=== PATIENT | female | born 1950 | race American Indian/Alaskan Native ===

== ENCOUNTER 2021-07-14 14:48 | Emergency (ER) | payer MEDICARE ==
--- NOTE | 2021-07-14 15:26 | Emergency Department Report ---
ED General Adult HPI - General Chief complaint: Rectal Pain Stated complaint: TAILBONE PAIN/BUTTOCK Time Seen by Provider: 07/14/21 15:15 Source: patient, EMS ( EMS documentation not available at time of chart dictation ), RN notes reviewed, old records reviewed Mode of arrival: Stretcher Limitations: No Limitations - History of Present Illness Initial comments: During the history and physical, I am chaperoned by nurse ZOHAIB GARDNER The patient is a 71-year-old female. Her past medical history includes metastatic ovarian cancer, to bone, hypertension. She currently receives her medical care at cancer treatment [facility]. She presents to the ER today with a primary complaint of tailbone and pelvic pain after mechanical fall 2 days ago. She reports that she is supposed to ambulate with a cane, but was not walking with a cane. She reports that she fell, slipped on her tailbone, and believes that she hit her head. She also has chronic back pain. She denies extremity weakness and numbness. She also endorses dysuria. She denies bladder/bowel retention incontinence or saddle anesthesia. She believes that she has a history of hypertension, but she reports that she is not taking any antihypertensive therapy that she is aware of. She does report that she is currently receiving chemotherapy at cancer treatment [facility]. She believes she last had blood work performed February 2021 Her main complaint today is musculoskeletal tailbone pain, and pelvic pain -: days(s) Location: back, pelvis Severity scale (0 -10): 4 Quality: aching Consistency: constant Improves with: rest Worsens with: movement - Related Data Home Medications Medication Instructions Recorded Confirmed Last Taken Cyproheptadine [Periactin] 4 mg PO TID 07/31/20 07/31/20 Unknown Docusate Sodium [Colace CAP] 100 mg PO TID PRN 07/31/20 07/31/20 Unknown Escitalopram [Lexapro] 20 mg PO DAILY 07/31/20 07/31/20 Unknown Iron Fum,Ps/Folic/Bcomp,C No.9 1 each PO QDAY 07/31/20 07/31/20 Unknown [Folivane-Plus Capsule] Lubiprostone (Nf) [Amitiza (Nf)] 8 mcg PO TID 07/31/20 07/31/20 Unknown Morphine Sulfate [Morphine Sulfate 60 mg PO BID 07/31/20 07/31/20 Unknown ER] Pomalidomide [Pomalyst] 1 mg PO QDAY 07/31/20 07/31/20 Unknown Zolpidem Tartrate 10 mg PO QHS 07/31/20 07/31/20 Unknown dexAMETHasone [Dexamethasone] 4 mg PO QDAY 07/31/20 07/31/20 Unknown Previous Rx's Medication Instructions Recorded Last Taken Type NIFEdipine XL [Procardia Xl] 90 mg PO Q12HR #60 tablet 08/06/20 Unknown Rx HYDROcodone/APAP 10-325 [[place] 1 each PO Q12HR PRN #15 tab 07/14/21 Unknown Rx 10-325 mg TAB] Metoprolol Tartrate 50 mg PO BID #60 tab 07/14/21 Unknown Rx Pregabalin [Lyrica] 50 mg PO QDAY #60 cap 07/14/21 Unknown Rx Allergies Allergy/AdvReac Type Severity Reaction Status Date / Time Penicillins AdvReac Unknown Verified 07/31/20 17:03 Sulfa (Sulfonamide AdvReac Unknown Verified 07/31/20 17:03 Antibiotics) ED Review of Systems ROS: Stated complaint: TAILBONE PAIN/BUTTOCK Other details as noted in HPI Constitutional: malaise. denies: fever Eyes: denies: eye discharge ENT: denies: epistaxis Respiratory: denies: cough Cardiovascular: denies: chest pain Gastrointestinal: denies: abdominal pain Genitourinary: denies: dysuria Musculoskeletal: back pain, arthralgia, myalgia Neurological: denies: weakness ED Past Medical Hx - Past Medical History Hx Hypertension: Yes - Social History Smoking Status: Unknown if ever smoked - Medications Home Medications: Home Medications Medication Instructions Recorded Confirmed Last Taken Type Cyproheptadine [Periactin] 4 mg PO TID 07/31/20 07/31/20 Unknown History Docusate Sodium [Colace CAP] 100 mg PO TID PRN 07/31/20 07/31/20 Unknown History Escitalopram [Lexapro] 20 mg PO DAILY 07/31/20 07/31/20 Unknown History Iron Fum,Ps/Folic/Bcomp,C No.9 1 each PO QDAY 07/31/20 07/31/20 Unknown History [Folivane-Plus Capsule] Lubiprostone (Nf) [Amitiza (Nf)] 8 mcg PO TID 07/31/20 07/31/20 Unknown History Morphine Sulfate [Morphine Sulfate 60 mg PO BID 07/31/20 07/31/20 Unknown History ER] Pomalidomide [Pomalyst] 1 mg PO QDAY 07/31/20 07/31/20 Unknown History Zolpidem Tartrate 10 mg PO QHS 07/31/20 07/31/20 Unknown History dexAMETHasone [Dexamethasone] 4 mg PO QDAY 07/31/20 07/31/20 Unknown History NIFEdipine XL [Procardia Xl] 90 mg PO Q12HR #60 tablet 08/06/20 Unknown Rx HYDROcodone/APAP 10-325 [[place] 1 each PO Q12HR PRN #15 tab 07/14/21 Unknown Rx 10-325 mg TAB] Metoprolol Tartrate 50 mg PO BID #60 tab 07/14/21 Unknown Rx Pregabalin [Lyrica] 50 mg PO QDAY #60 cap 07/14/21 Unknown Rx ED Physical Exam - General Limitations: No Limitations General appearance: alert, in no apparent distress - Head Head exam: Present: atraumatic, normocephalic - Eye Eye exam: Present: normal appearance, EOMI. Absent: nystagmus - ENT ENT exam: Present: normal exam, normal orophraynx, mucous membranes moist, normal external ear exam - Neck Neck exam: Present: normal inspection, full ROM. Absent: tenderness, meningismus - Respiratory Respiratory exam: Present: normal lung sounds bilaterally. Absent: respiratory distress, wheezes, rales, rhonchi, stridor, decreased breath sounds - Cardiovascular Cardiovascular Exam: Present: regular rate, normal rhythm, normal heart sounds. Absent: bradycardia, tachycardia, irregular rhythm, systolic murmur, diastolic murmur, rubs, gallop - GI/Abdominal GI/Abdominal exam: Present: soft. Absent: distended, tenderness, guarding, pulsatile mass - Extremities Exam Extremities exam: Present: normal inspection, other (2+ pulses noted in the bilateral upper and lower extremities. The long bones are nontender. The pelvis is stable but tender. The coccyx is tender. Chaperoned by nurse Doug). Absent: tenderness, calf tenderness - Back Exam Back exam: Present: normal inspection, vertebral tenderness (There is thoracic tenderness. There is no thoracic step-offs there is no lumbar spine step-off.). Absent: tenderness, CVA tenderness (R), paraspinal tenderness - Neurological Exam Neurological exam: Present: alert (Downgoing plantar reflexes bilaterally), oriented X3, reflexes normal, other (No facial droop. Tongue midline. Extraocular movements intact bilaterally. Facial sensation intact to light touch in V1, V2, V3 distribution bilaterally. 5 and a 5 strength in 4 extremities. Sensation intact to light touch in 4 extremities.). Absent: motor sensory deficit - Psychiatric Psychiatric exam: Present: normal affect, normal mood - Skin Skin exam: Present: warm, dry, intact, normal color. Absent: rash ED Course Vital Signs 07/14/21 07/14/21 07/14/21 15:03 15:13 15:21 Temperature 98.5 F Pulse Rate 94 H 91 H Respiratory 16 14 Rate Blood Pressure 215/87 Blood Pressure 230/85 [Right] O2 Sat by Pulse 100 100 100 Oximetry O2 Sat by Pulse Oximetry [ Digit-Finger] 07/14/21 07/14/21 07/14/21 15:26 15:29 15:40 Temperature Pulse Rate 86 92 H Respiratory 16 16 15 Rate Blood Pressure 215/87 Blood Pressure 215/87 [Right] O2 Sat by Pulse 100 100 100 Oximetry O2 Sat by Pulse Oximetry [ Digit-Finger] 07/14/21 07/14/21 07/14/21 16:43 16:46 17:00 Temperature Pulse Rate 87 82 83 Respiratory 21 20 18 Rate Blood Pressure 201/94 201/94 Blood Pressure 201/94 [Right] O2 Sat by Pulse 99 100 100 Oximetry O2 Sat by Pulse Oximetry [ Digit-Finger] 07/14/21 07/14/21 07/14/21 17:20 17:29 17:40 Temperature Pulse Rate 85 88 Respiratory 17 23 Rate Blood Pressure 215/84 206/76 Blood Pressure [Right] O2 Sat by Pulse 99 100 Oximetry O2 Sat by Pulse 99 Oximetry [ Digit-Finger] 07/14/21 07/14/21 07/14/21 18:00 18:20 18:40 Temperature Pulse Rate 88 79 78 Respiratory 16 22 17 Rate Blood Pressure 200/89 210/84 218/84 Blood Pressure [Right] O2 Sat by Pulse 100 99 100 Oximetry O2 Sat by Pulse Oximetry [ Digit-Finger] 07/14/21 07/14/21 07/14/21 19:00 19:25 19:36 Temperature 98.3 F Pulse Rate 78 79 Respiratory 16 14 14 Rate Blood Pressure 218/85 Blood Pressure 215/80 [Right] O2 Sat by Pulse 100 100 Oximetry O2 Sat by Pulse Oximetry [ Digit-Finger] - Reevaluation(s) Reevaluation #1: 07/14/21 17:23 Differential diagnosis, including but not limited to: Closed head injury, c ervical spine injury, thoracic spine fracture, metastatic ovarian cancer to bone, hypertension, noncompliance, coccydynia, pelvic/sacrum/coccyx contusion/fracture Assessment and plan: 71-year-old female, with multiple medical comorbidities, with known history of metastatic ovarian cancer to bone, presenting to the ER today 2 days after fall, after ambulating without a cane like she is supposed to . Blood pressure is improved. Please reference the [employer] clinical policy on asymptomatic hypertension. Start patient on amlodipine. Given complex past medical history, obtain CBC, urinalysis, and appropriate laboratory studies. CT scan of the brain, cervical spine and thoracic spine as well as bony pelvis did not demonstrate any fracture, or dislocation, or emergent traumatic injury. Given her advanced age, and aforementioned medical comorbidities, it is my opinion that plain films are insensitive to exclude fracture/distal. Specific verbiage regarding T-spine findings are reviewed and appreciated. These are likely chronic. She will need to follow-up with outpatient primary care, orthopedic/spine or spine for outpatient evaluation for TLSO brace. She will need to follow-up with a primary care doctor for her hypertension/elevated blood pressure. Presuming laboratory studies do not demonstrate any significant abnormalities, discharged with outpatient follow-up. We will also order case management consultation to see if patient is eligible for home physical therapy and her rehabilitation 07/14/21 20:13 Patient's initial laboratory studies demonstrated leukopenia and anemia. I suspected that this is a laboratory error, and thus repeated the CBC, which demonstrated anemia, but much improved. Patient also has very mild renal insufficiency. Blood pressure is improved when compared to prior. Patient asking to eat. She will need to follow-up with outpatient primary care, neurosurgery, and her cancer physicians for her multiple chronic issues. - Pulse Oximetry Interpretation Digit-Finger Initial Pulse Oximetry Readin O2 Sat by Pulse Oximetry: 99 Actions Taken: none ED Medical Decision Making - Lab Data Result diagrams: 07/14/21 18:52 07/14/21 17:18 Vital Signs 07/14/21 07/14/21 07/14/21 15:03 15:13 15:21 Temperature 98.5 F Pulse Rate 94 H 91 H Respiratory 16 14 Rate Blood Pressure 215/87 Blood Pressure 230/85 [Right] O2 Sat by Pulse 100 100 100 Oximetry 07/14/21 07/14/21 07/14/21 15:26 15:29 16:46 Temperature Pulse Rate 86 82 Respiratory 16 16 20 Rate Blood Pressure Blood Pressure 215/87 201/94 [Right] O2 Sat by Pulse 100 100 100 Oximetry - Radiology Data Radiology results: pending, report reviewed, image reviewed CT head/brain wo con INDICATION / CLINICAL INFORMATION: 71 years Female; FALL Closd head injuuyr. TECHNIQUE: Routine CT head without contrast. All CT scans at this location are performed using CT dose reduction for ALARA by means of automated exposure control. COMPARISON: None. FINDINGS: BRAIN / INTRACRANIAL CONTENTS: No acute hemorrhage, mass effect, midline shift, hydrocephalus, or acute, large territorial infarct. Mild to moderate, diffuse cerebral and cere bellar atrophy. There are mild areas of decreased attenuation in the white matter of the cerebral hemispheres. These are nonspecific findings and may be related to microangiopathy (hypertension, diabetes, atherosclerosis), given the patient's age. It might be difficult to evaluate for small areas of ischemia without diffusion imaging by MRI. CRANIOCERVICAL JUNCTION: No significant abnormality. ORBITS: No significant abnormality of visualized orbits. SINUSES / MASTOIDS: Visualized paranasal sinuses and mastoid air cells are essentially clear. ADDITIONAL FINDINGS: Atherosclerotic disease is seen in the anterior circulation. IMPRESSION: 1. No focal mass, hemorrhage, hydrocephalus, or acute, large territorial infarct. Signer Name: Matias Muñoz MD, III Signed: 07/14/2021 3:08 PM Workstation Name: [id number] SACRUM/COCCYX, 4 VIEWS INDICATION / CLINICAL INFORMATION: fall pelvic and t ailbone pain. COMPARISON: None available. FINDINGS: There is suggestion of large lytic lesion within the sacrum in the region of S1-S2. No definite fracture or malalignment is noted. IMPRESSION: Findings suggestive of possible lytic lesion within the sacrum. No definitive fracture noted. Signer Name: Fabi Long MD Signed: 07/14/2021 4:04 PM Workstation Name: [email or web address] CT cervical spine wo con INDICATION / CLINICAL INFORMATION: 71 years Female; fall head injuyr back pain. TECHNIQUE: Axial CT images of the cervical spine were obtained. Sagittal and coronal reformatted images were produced. All CT scans at this location are performed using CT dose reduction for ALARA by means of automated exposure control. COMPARISON: None available. FINDINGS: POST- SURGICAL CHANGES: None. ALIGNMENT: No significant abnormality. VERTEBRAE: No signs of fracture. There is mild loss of height at C5, C6, and C7, most likely on a chronic degenerative basis. The marrow is heterogeneous in appearance throughout, with most prevalent findings at C5. Please correlate clinically correlate. Mild osseous foraminal narrowing seen on the left at C5-6, C6-7, and C7-T1 related uncinate hypertrophy. Similar findings on the right at C5-6. INTRAVERTEBRAL DISCS: Disc spaces are fairly well-maintained throughout without significant canal stenosis. PARASPINAL SOFT TISSUES: No significant abnorma lity. ADDITIONAL FINDINGS: Pacemaker/defibrillator wires suggested. Port-A-Cath noted on the right. Significant atherosclerotic disease is seen in the carotid bifurcation regions, as well as the vertebral arteries. IMPRESSION: 1. No signs of acute bony trauma to the cervical spine. 2. Marrow placement process might be consideration. Please clinically correlate. Signer Name: Matias Muñoz MD, III Signed: 07/14/2021 3:13 PM Workstation Name: [id number] TECHNIQUE: Axial CT images of the thoracic spine were obtained. Sagittal and coronal reformatted images were produced. All CT scans at this location are performed using CT dose reduction for ALARA by means of automated exposure control. COMPARISON: None available. FINDINGS: POST-SURGICAL CHANGES: None. ALIGNMENT: Mild to moderate, excessive kyphosis noted, with apex at approximately T4. Minimal dextroscoliosis seen as well. VERTEBRAE: Compression injury seen at [id number] without nuclear medicine bone scan. There is also mild loss of height at T6 and perhaps C7. Patchy lucencies are seen throughout the visualized axial skeleton-marrow placement process suggested, such as myeloma or metastatic disease. Costovertebral, costotransverse, and facet joints demonstrate mild, multilevel areas of degenerative change. Overall, no significant foraminal narrowing appreciated. INTERVERTEBRAL DISCS: No significant abnormality. PARASPINAL SOFT TISSUES: No significant abnormality. ADDITIONAL FINDINGS: Pacemaker/defibrillator wires noted. Port-A-Cath seen on the right. Atherosclerotic disease seen in the aorta and its branches. IMPRESSION: 1. Compression injuries at T4 and T6, as described above. 2. Marrow placement process suggested. Follow-up as clinically warranted. Signer Name: Matias Muñoz MD, III Signed: 07/14/2021 3:18 PM Workstation Name: [id number] CT PELVIS WITHOUT CONTRAST INDICATION / CLINICAL INFORMATION: fallpelvic bony pain. TECHNIQUE: Axial CT images were obtained through the pelvis without contrast. All CT scans at this location are performed using CT dose reduction for ALARA by means of automated exposure control. COMPARISON: None available. FINDINGS: BONES: No trauma fracture. Expansile lytic lesion involving the sacrum. No pathologic fracture . Incompletely visualized round lytic metastasis involving the right L3 vertebral body measuring 12 mm series 2 image 1. 2 cm lyt ic metastasis involving the right iliac bone coronal image 92. HIP JOINTS: No significant abnormality. SACROILIAC JOINTS: No significant abnormality. SOFT TISSUES: No significant abnormality. LOWER LUMBAR SPINE: No significant abnormality. SOFT TISSUES WITHIN PELVIS: Severe vascular calcifications nonaneurysmal aorta, bilateral iliac and femoral arteries. Uterus absent. ADDITIONAL FINDINGS: None. IMPRESSION: 1. Lytic lesions involving the right iliac bone, sacrum and right L3 vertebral body could represent lytic skeletal metastases versus myeloma. 2. No pelvic or hip fracture Signer Name: Emigdio Kwok MD Signed: 07/14/2021 4:17 PM Critical care attestation.: If time is entered above; I have spent that time in minutes in the direct care of this critically ill patient, excluding procedure time. ED Disposition Clinical Impression: History of ovarian cancer, Elevated blood pressure reading, Fall, Closed head i njury, Thoracic compression fracture, Coccydynia, Metastatic cancer to bone, Anemia, DJD (degenerative joint disease) of cervical spine Disposition: 01 HOME / SELF CARE / HOMELESS Is pt being admited?: No Does the pt Need Aspirin: No Condition: Good Additional Instructions: Please take the pain medication and blood pressure medication as needed and directed. Patient was found to have multiple incidental abnormal findings today, including anemia, elevated blood pressure, and evidence of metastatic cancer to bone. We recommend that you have your primary care doctor or hematology/grievance and appeals specialist contact the medical records department, and obtain copies of laboratory studies, radiology studies, to follow-up on nonemergent incidental abnormal findings. Recommend that patient ambulate with a cane or walker at home. Patient had a CT scan of the cervical spine which demonstrated compression fractures which are likely subacute to chronic. The patient will need to follow-up with a neurosurgeon or spine surgeon within the next 2 weeks for this finding. [facility] brain and spine is a local spine clinic. The patient is also found to have chronic high blood pressure. Long-term complications of hypertension include stroke, heart attack, disability, paralysis, loss of quality of life. Therefore, it is very important to take blood pressure medication as prescribed. Recommend follow-up with your primary care doctor or medical doctor for elevated blood pressure within the next week. Recommend follow-up with your hematology grievance and appeals specialist within the next week. Recommend follow-up with spine/neurosurgery within the next 2 weeks. Please return to the emergency room right away with new pain, worsened pain, migration of pain, projectile vomiting, change in mental status, confusion, inability tolerate liquid feeds, new, worsened or different symptoms not present on the initial emergency room evaluation A case management/high school social studies tutor consultation is placed in the computer system, the patient should be contacted on her listed phone number to arrange outpatient evaluation for physical therapy. Prescriptions: Pregabalin [Lyrica] 50 mg PO QDAY #60 cap Metoprolol Tartrate 50 mg PO BID #60 tab HYDROcodone/APAP 10-325 [[place] 10-325 mg TAB] 1 each PO Q12HR PRN #15 tab PRN Reason: Pain , Severe (7-10) Referrals: [facility] [Provider Group] - 3-5 Days [facility] [Provider Group] - 3-5 Days
[2021-07-14] MEDS: amLODIPine 5 MG TAB PO ONE ×2 (15:43→16:42)
[2021-07-14] MEDS: ACETAMINOPHEN 325 MG TAB PO ONE ×2 (15:43→16:42)
[2021-07-14] MEDS: ONDANSETRON 4 MG ODT TAB PO ONE ×2 (15:43→16:42)
--- NOTE | 2021-07-14 16:12 | Cat Scan Report ---
CT head/brain wo con INDICATION / CLINICAL INFORMATION: 71 years Female; FALL Closd head injuuyr. TECHNIQUE: Routine CT head without contrast. All CT scans at this location are performed using CT dos e reduction for ALARA by means of automated exposure control. COMPARISON: None. FINDINGS: BRAIN / INTRACRANIAL CONTENTS: No acute hemorrhage, mass effect, midline shift, hydrocephalus, or acu te, large territorial infarct. Mild to moderate, diffuse cerebral and cerebellar atrophy. There are mild areas of decreased attenuation in the white matter of the cerebral hemispheres. These are nonspecific findings and may be related to microangiopathy (hypertension, diabetes, atheroscleros is), given the patient's age. It might be difficult to evaluate for small areas of ischemia without d iffusion imaging by MRI. CRANIOCERVICAL JUNCTION: No significant abnormality. ORBITS: No significant abnormality of visualized orbits. SINUSES / MASTOIDS: Visualized paranasal sinuses and mastoid air cells are essentially clear. ADDITIONAL FINDINGS: Atherosclerotic disease is seen in the anterior circulation. IMPRESSION: 1. No focal mass, hemorrhage, hydrocephalus, or acute, large territorial infarct. Signer Name: Matias Muñoz MD, III Signed: 07/14/2021 4:08 PM Workstation Name: [email or web address]
--- NOTE | 2021-07-14 16:18 | Cat Scan Report ---
. CT cervical spine wo con INDICATION / CLINICAL INFORMATION: 71 years Female; fall head injuyr back pain. TECHNIQUE: Axial CT images of the cervical spine were obtained. Sagittal and coronal reformatted images were pr oduced. All CT scans at this location are performed using CT dose reduction for ALARA by means of aut omated exposure control. COMPARISON: None available. FINDINGS: POST-SURGICAL CHANGES: None. ALIGNMENT: No significant abnormality. VERTEBRAE: No signs of fracture. There is mild loss of height at C5, C6, and C7, most likely on a chronic degenerative basis. The marrow is heterogeneous in appearance throughout, with most prevalent findings at C5. Please rae elate clinically correlate. Mild osseous foraminal narrowing seen on the left at C5-6, C6-7, and C7-T1 related uncinate hypertrop hy. Similar findings on the right at C5-6. INTRAVERTEBRAL DISCS: Disc spaces are fairly well-maintained throughout without significant canal abida nosis. PARASPINAL SOFT TISSUES: No significant abnormality. ADDITIONAL FINDINGS: Pacemaker/defibrillator wires suggested. Port-A-Cath noted on the right. Significant atherosclerotic disease is seen in the carotid bifurcation regions, as well as the verteb ral arteries. IMPRESSION: 1. No signs of acute bony trauma to the cervical spine. 2. Marrow placement process might be consideration. Please clinically correlate. Signer Name: Matias Muñoz MD, III Signed: 07/14/2021 4:13 PM Workstation Name: [email or web address]
--- NOTE | 2021-07-14 16:22 | Cat Scan Report ---
CT thoracic spine wo con INDICATION / CLINICAL INFORMATION: 71 years Female; FALL back pain. TECHNIQUE: Axial CT images of the thoracic spine were obtained. Sagittal and coronal reformatted images were pro duced. All CT scans at this location are performed using CT dose reduction for ALARA by means of auto mated exposure control. COMPARISON: None available. FINDINGS: POST-SURGICAL CHANGES: None. ALIGNMENT: Mild to moderate, excessive kyphosis noted, with apex at approximately T4. Minimal dextros coliosis seen as well. VERTEBRAE: Compression injury seen at [id number] without nuclear medicine bone scan. There is also mild loss of height at T6 and perhaps C7. Patchy lucencies are seen throughout the visualized axial skeleton-marrow placement process suggested , such as myeloma or metastatic disease. Costovertebral, costotransverse, and facet joints demonstrate mild, multilevel areas of degenerative change. Overall, no significant foraminal narrowing appreciated. INTERVERTEBRAL DISCS: No significant abnormality. PARASPINAL SOFT TISSUES: No significant abnormality. ADDITIONAL FINDINGS: Pacemaker/defibrillator wires noted. Port-A-Cath seen on the right. Atherosclerotic disease seen in the aorta and its branches. IMPRESSION: 1. Compression injuries at T4 and T6, as described above. 2. Marrow placement process suggested. Follow-up as clinically warranted. Signer Name: Matias Muñoz MD, III Signed: 07/14/2021 4:18 PM Workstation Name: [email or web address]
--- NOTE | 2021-07-14 17:09 | XRay Report ---
SACRUM/COCCYX, 4 VIEWS INDICATION / CLINICAL INFORMATION: fall pelvic and tailbone pain. COMPARISON: None available. FINDINGS: There is suggestion of large lytic lesion within the sacrum in the region of S1-S2. No definite fract ure or malalignment is noted. IMPRESSION: Findings suggestive of possible lytic lesion within the sacrum. No definitive fracture no efra. Signer Name: Fabi Long MD Signed: 07/14/2021 5:04 PM Workstation Name: [id number]
[2021-07-14] MEDS ORDERED: oxyCODONE 5 MG TAB PO ONE (17:20)
--- NOTE | 2021-07-14 17:21 | Cat Scan Report ---
CT PELVIS WITHOUT CONTRAST INDICATION / CLINICAL INFORMATION: fallpelvic bony pain. TECHNIQUE: Axial CT images were obtained through the pelvis without contrast. All CT scans at this location are performed using CT dose reduction for ALARA by means of automated exposure control. COMPARISON: None available. FINDINGS: BONES: No trauma fracture. Expansile lytic lesion involving the sacrum. No pathologic fracture . Inco mpletely visualized round lytic metastasis involving the right L3 vertebral body measuring 12 mm seri es 2 image 1. 2 cm lytic metastasis involving the right iliac bone coronal image 92. HIP JOINTS: No significant abnormality. SACROILIAC JOINTS: No significant abnormality. SOFT TISSUES: No significant abnormality. LOWER LUMBAR SPINE: No significant abnormality. SOFT TISSUES WITHIN PELVIS: Severe vascular calcifications nonaneurysmal aorta, bilateral iliac and f emoral arteries. Uterus absent. ADDITIONAL FINDINGS: None. IMPRESSION: 1. Lytic lesions involving the right iliac bone, sacrum and right L3 vertebral body could represent l ytic skeletal metastases versus myeloma. 2. No pelvic or hip fracture Signer Name: Emigdio Kwok MD Signed: 07/14/2021 5:17 PM Workstation Name: [id number]
[2021-07-14 17:46] LABS: Alanine Aminotransferase < 5 units/L (7-56); Albumin 3.2 g/dL (3.9-5); BUN/Creatinine Ratio 17; Blood Urea Nitrogen 27 mg/dL (7-17); Calcium 8.9 mg/dL (8.4-10.2); Hemolysis Index 17
[2021-07-14 17:51] LABS: Bilirubin,Urine NEG (Negative); Blood,Urine SM (Negative); Color,Urine Colorless (Yellow); Protein,Urine <15 mg/dL mg/dL (Negative); Urobilinogen,Urine < 2.0 mg/dL (<2.0); WBC,Urine < 1.0 /HPF (0.0-6.0)
[2021-07-14] MEDS ORDERED: HYDROmorphone 1 MG/1 ML INJ IM ONE (18:50)
[2021-07-14 19:50] LABS: Basophils % (Auto) 0.5 % (0.0-1.8); Eosinophils # (Auto) 0.1 K/mm3 (0.0-0.4); Eosinophils % (Auto) 1.4 % (0.0-4.3); Lymphocytes # (Auto) 1.1 K/mm3 (1.2-5.4); Lymphocytes % (Auto) 19.1 % (13.4-35.0); Mean Corpuscular HGB Conc 33 % (30-34); Mean Corpuscular Volume 98 fl (79-97); Monocytes # (Auto) 0.3 K/mm3 (0.0-0.8); Monocytes % (Auto) 5.7 % (0.0-7.3); Red Cell Distribution Width 16.9 % (13.2-15.2)
[2021-07-14 20:02] LABS: Hematocrit 21.5 % (30.3-42.9); Hemoglobin 7.2 gm/dl (10.1-14.3); Platelet Count 206 K/mm3 (140-440)
[2021-07-14 21:22] LABS: Hematocrit TNR % (30.3-42.9); Hemoglobin TNR gm/dl (10.1-14.3); Mean Corpuscular HGB Conc TNR % (30-34); Mean Corpuscular Volume TNR fl (79-97); Red Blood Count TNR M/mm3 (3.65-5.03); Red Cell Distribution Width TNR % (13.2-15.2)
[2021-07-14 21:23] LABS: Basophils % (Auto) TNR % (0.0-1.8); Eosinophils # (Auto) TNR K/mm3 (0.0-0.4); Eosinophils % (Auto) TNR % (0.0-4.3); Lymphocytes # (Auto) TNR K/mm3 (1.2-5.4); Lymphocytes % (Auto) TNR % (13.4-35.0); Mean Platelet Volume TNR fl (6-12); Monocytes # (Auto) TNR K/mm3 (0.0-0.8); Monocytes % (Auto) TNR % (0.0-7.3); Platelet Count TNR K/mm3 (140-440)
[2021-07-15 01:29] VITALS: BP 185/68
== END 2021-07-15 01:25 | disposition home or self-care (01) ==
LOC: ED 14:48
DX: S09.8XXA Other specified injuries of head, initial encounter (principal); C76.51 Malignant neoplasm of right lower limb; S22.000A Wedge compression fracture of unspecified thoracic vertebra, initial encounter for closed fracture; I10 Essential (primary) hypertension; M53.3 Sacrococcygeal disorders, not elsewhere classified; D64.9 Anemia, unspecified; M51.36 Other intervertebral disc degeneration, lumbar region; X58.XXXA Exposure to other specified factors, initial encounter; Y93.89 Activity, other specified; Y92.89 Other specified places as the place of occurrence of the external cause; Y99.8 Other external cause status
CPT/HCPCS: 36415; 70450; 72125; 72128; 72192; 72220; 80053; 81001; 82550; 83735; 85007; 85025; 86850; 86900; 86901; 87086; 96372; 96374; 96375; 99285; J1170; J3490; Q0162

== ENCOUNTER 2021-08-17 11:32 | Observation (INO) | payer MEDICARE ==
--- NOTE | 2021-08-17 12:34 | Emergency Department Report ---
HPI - General Chief Complaint: Urogenital-Female Time Seen by Provider: 08/17/21 12:24 - HPI HPI: Room 20 The patient is a 71-year-old female present with a chief complaint of fatigue and malodorous urine. Patient states she has felt lethargic since this morning. Patient states she has noticed malodorous urine since last night. Patient denies dysuria or nausea/vomiting/diarrhea. Patient admits to subjective fever but denies history of cough. Patient denies have any other complaints. Of note the has been placed on anticoagulation secondary to bilateral DVTs ED Past Medical Hx - Past Medical History Hx Hypertension: Yes Hx of Cancer: Yes (Ovarian CA) Additional medical history: DAPHNIE; hypokalemia, irritable bowel syndrome - Surgical History Additional Surgical History: Oophorectomy - Family History Family history: no significant - Social History Smoking Status: Unknown if ever smoked Substance Use Type: None - Medications Home Medications: Home Medications Medication Instructions Recorded Confirmed Last Taken Type Cyproheptadine [Periactin] 4 mg PO TID 07/31/20 07/31/20 Unknown History Docusate Sodium [Colace CAP] 100 mg PO TID PRN 07/31/20 07/31/20 Unknown History Escitalopram [Lexapro] 20 mg PO DAILY 07/31/20 07/31/20 Unknown History Iron Fum,Ps/Folic/Bcomp,C No.9 1 each PO QDAY 07/31/20 07/31/20 Unknown History [Folivane-Plus Capsule] Lubiprostone (Nf) [Amitiza (Nf)] 8 mcg PO TID 07/31/20 07/31/20 Unknown History Morphine Sulfate [Morphine Sulfate 60 mg PO BID 07/31/20 07/31/20 Unknown History ER] Pomalidomide [Pomalyst] 1 mg PO QDAY 07/31/20 07/31/20 Unknown History Zolpidem Tartrate 10 mg PO QHS 07/31/20 07/31/20 Unknown History dexAMETHasone [Dexamethasone] 4 mg PO QDAY 07/31/20 07/31/20 Unknown History NIFEdipine XL [Procardia Xl] 90 mg PO Q12HR #60 tablet 08/06/20 Unknown Rx HYDROcodone/APAP 10-325 [[place] 1 each PO Q12HR PRN #15 tab 07/14/21 Unknown Rx 10-325 mg TAB] Metoprolol Tartrate 50 mg PO BID #60 tab 07/14/21 Unknown Rx Pregabalin [Lyrica] 50 mg PO QDAY #60 cap 07/14/21 Unknown Rx ED Review of Systems ROS: Stated complaint: WEAKNESS Other details as noted in HPI Constitutional: fever (Subjective), malaise Eyes: denies: eye pain ENT: denies: throat pain Respiratory: denies: cough, shortness of breath Cardiovascular: denies: chest pain Endocrine: no symptoms reported Gastrointestinal: denies: abdominal pain, nausea, vomiting, diarrhea Genitourinary: other (Malodorous urine). denies: dysuria Musculoskeletal: denies: back pain Neurological: denies: headache Physical Exam - Physical Exam Vital Signs: Vital Signs 08/17/21 12:12 Temperature 97.2 F L Pulse Rate 68 Respiratory 18 Rate Blood Pressure 151/130 [Right] O2 Sat by Pulse 100 Oximetry Physical Exam: GENERAL: The patient is well-developed well-nourished female lying on stretcher not appearing to be in acute distress. [] HEENT: Normocephalic. Atraumatic. Extraocular motions are intact. Patient has moist mucous membranes. NECK: Supple. Trachea midline CHEST/LUNGS: Clear to auscultation. There is no respiratory distress noted. HEART/CARDIOVASCULAR: Regular. There is no tachycardia. There is no gallop rub or murmur. ABDOMEN: Abdomen is soft, nontender. Patient has normal bowel sounds. There is no abdominal distention. SKIN: There is no rash. There is no edema. There is no diaphoresis. NEURO: The patient is awake, alert, and oriented. The patient is cooperative. GCS 15. The patient has normal speech MUSCULOSKELETAL: There is no evidence of acute injury. RECTAL: Brown stool, guaiac positive ED Course Vital Signs 08/17/21 12:12 Temperature 97.2 F L Pulse Rate 68 Respiratory 18 Rate Blood Pressure 151/130 [Right] O2 Sat by Pulse 100 Oximetry - Consultations Consultation #1: 08/17/21 14:26 GI paged 08/17/21 14:[address] Umaña ED Medical Decision Making - Lab Data Result diagrams: 08/17/21 13:29 08/17/21 13:29 Laboratory Tests 04/24/22 04/24/22 04/24/22 13:29 13:29 13:29 WBC 4.7 RBC 2.08 L Hgb 6.7 L Hct 21.0 L MCV 95 MCH 32 MCHC 34 RDW 17.8 H Plt Count 116 L Lymph % (Auto) 18.6 [place] % (Auto) 5.3 Eos % (Auto) 1.1 Baso % (Auto) 0.6 Lymph # (Auto) 0.9 L [place] # (Auto) 0.3 Eos # (Auto) 0.1 Baso # (Auto) 0.0 Seg Neutrophils % 74.4 H Seg Neutrophils # 3.5 Sodium 137 Potassium 3.7 Chloride 104.7 Carbon Dioxide 21 L Anion Gap 15 BUN 48 H Creatinine 1.9 H Estimated GFR 31 BUN/Creatinine Ratio 25 Glucose 89 Calcium 10.6 H Total Bilirubin 0.80 AST 13 ALT 12 Alkaline Phosphatase 36 Total Creatine Kinase 31 CK-MB (CK-2) 1.3 CK-MB (CK-2) Rel Index 4.1 H Troponin T 0.019 Total Protein 10.6 H Albumin 2.6 L Albumin/Globulin Ratio 0.3 TSH 5.670 H Free T4 1.16 Urinalysis pending at time of admission - Differential Diagnosis UTI, dehydration, hypothyroidism, symptomatic anemia Critical care attestation.: If time is entered above; I have spent that time in minutes in the direct care of this critically ill patient, excluding procedure time. ED Disposition Clinical Impression: Symptomatic anemia, GI bleed Disposition: ADMITTED INPATIENT Is pt being admited?: Yes Does the pt Need Aspirin: No Condition: Fair Time of Disposition: 15:21 (Care transferred to hospitalist (Dr. Hdez))
[2021-08-17 13:44] LABS: Basophils % (Auto) 0.6 % (0.0-1.8); Eosinophils # (Auto) 0.1 K/mm3 (0.0-0.4); Eosinophils % (Auto) 1.1 % (0.0-4.3); Hemoglobin 6.7 gm/dl (10.1-14.3); Lymphocytes # (Auto) 0.9 K/mm3 (1.2-5.4); Lymphocytes % (Auto) 18.6 % (13.4-35.0); Mean Corpuscular HGB Conc 34 % (30-34); Mean Corpuscular Volume 95 fl (79-97); Monocytes # (Auto) 0.3 K/mm3 (0.0-0.8); Monocytes % (Auto) 5.3 % (0.0-7.3); Platelet Count 116 K/mm3 (140-440); Red Blood Count 2.08 M/mm3 (3.65-5.03); Red Cell Distribution Width 17.8 % (13.2-15.2)
[2021-08-17] MEDS ORDERED: SODIUM CHLORIDE 0.9% 500 ML 500 ML IV ONE (13:59)
[2021-08-17 14:06] LABS: Albumin 2.6 g/dL (3.9-5)
[2021-08-17 14:18] LABS: Free T4 (Free Thyroxine) 1.16 ng/dL (0.76-1.46)
[2021-08-17] MEDS ORDERED: PANTOPRAZOLE 40 MG INJ IV ONE (14:25)
[2021-08-17 15:10] LABS: Calcium 10.6 mg/dL (8.4-10.2); Creatine Kinase MB 1.3 ng/mL (0.0-4.0)
--- NOTE | 2021-08-17 15:51 | History and Physical Report ---
History of Present Illness Date of examination: 08/17/21 Date of admission: 08/17/2021 Chief complaint: Fatigue and lethargy since a.m. History of present illness: 71-year-old female with history of ovarian cancer, peripheral neuropathy and chronic anemia comes in for feeling severe fatigue and being lethargic. Patient also noticed foul-smelling urine since last night. No dysuria. No fever or chills. Patient had bilateral DVTs recently and is anticoagulation. Patient not able to remain name of anticoagulant. No fever or chills. ED course: Hemoglobin was 6.7 hence admission, occult blood was positive as per the emergency room physician - Past Medical History --Hypertension: Yes --Ovarian CA) --Additional medical history: DAPHNIE; hypokalemia, irritable bowel syndrome - Surgical History -- Oophorectomy - Family History --No significant - Social History --Smoking Status: Unknown if ever smoked --Substance Use Type: None - Medications --Home Medications: Home Medications Medication Instructions Recorded Confirmed Last Taken Type Cyproheptadine [Periactin] 4 mg PO TID 07/31/20 07/31/20 Unknown History Docusate Sodium [Colace CAP] 100 mg PO TID PRN 07/31/20 07/31/20 Unknown History Escitalopram [Lexapro] 20 mg PO DAILY 07/31/20 07/31/20 Unknown History Iron Fum,Ps/Folic/Bcomp,C No.9 1 each PO QDAY 07/31/20 07/31/20 Unknown History [Folivane-Plus Capsule] Lubiprostone (Nf) [Amitiza (Nf)] 8 mcg PO TID 07/31/20 07/31/20 Unknown History Morphine Sulfate [Morphine Sulfate 60 mg PO BID 07/31/20 07/31/20 Unknown History ER] Pomalidomide [Pomalyst] 1 mg PO QDAY 07/31/20 07/31/20 Unknown History Zolpidem Tartrate 10 mg PO QHS 07/31/20 07/31/20 Unknown History dexAMETHasone [Dexamethasone] 4 mg PO QDAY 07/31/20 07/31/20 Unknown History NIFEdipine XL [Procardia Xl] 90 mg PO Q12HR #60 tablet 08/06/20 Unknown Rx HYDROcodone/APAP 10-325 [[place] 1 each PO Q12HR PRN #15 tab 07/14/21 Unknown Rx 10-325 mg TAB] Metoprolol Tartrate 50 mg PO BID #60 tab 07/14/21 Unknown Rx Pregabalin [Lyrica] 50 mg PO QDAY #60 cap 07/14/21 Unknown Rx Review of Systems ROS: Stated complaint: WEAKNESS Other details as noted in HPI Constitutional: fever (Subjective), malaise Eyes: denies: eye pain ENT: denies: throat pain Respiratory: denies: cough, shortness of breath Cardiovascular: denies: chest pain Endocrine: no symptoms reported Gastrointestinal: denies: abdominal pain, nausea, vomiting, diarrhea Genitourinary: other (Malodorous urine). denies: dysuria Musculoskeletal: denies: back pain Neurological: denies: headache Medications and Allergies Allergies Allergy/AdvReac Type Severity Reaction Status Date / Time Penicillins AdvReac Mild Unknown Verified 08/17/21 14:48 Sulfa (Sulfonamide AdvReac Unknown Verified 08/17/21 14:48 Antibiotics) Home Medications Medication Instructions Recorded Confirmed Last Taken Type Iron Fum,Ps/Folic/Bcomp,C No.9 1 each PO QDAY 07/31/20 08/18/21 Unknown History [Folivane-Plus Capsule] HYDROcodone/APAP 10-325 [[place] 1 each PO Q12HR PRN #15 tab 07/14/21 08/18/21 Unknown Rx 10-325 mg TAB] Metoprolol Tartrate 50 mg PO BID #60 tab 07/14/21 08/18/21 Unknown Rx Pregabalin [Lyrica] 50 mg PO QDAY #60 cap 07/14/21 08/18/21 Unknown Rx Apixaban [Eliquis] 5 mg PO BID 08/18/21 08/18/21 Unknown History Aspirin [Aspirin BABY CHEW TAB] 1 mg PO DAILY 08/18/21 08/18/21 Unknown History AtorvaSTATin [Lipitor] 40 mg PO QHS 08/18/21 08/18/21 Unknown History Ergocalciferol [Vitamin D2] 50,000 unit PO 1XW 08/18/21 08/18/21 Unknown History Mirtazapine [Remeron 30mg TAB] 30 mg PO QHS 08/18/21 08/18/21 Unknown History Exam - Constitutional Vitals: Temp Pulse Resp BP Pulse Ox 97.2 F L 68 18 151/130 100 08/17/21 12:12 08/17/21 12:12 08/17/21 12:12 08/17/21 12:12 08/17/21 12:12 General appearance: Present: mild distress, well-nourished - EENT Eyes: Present: PERRL ENT: hearing intact, clear oral mucosa - Neck Neck: Present: supple, normal ROM - Respiratory Respiratory effort: normal Respiratory: bilateral: CTA - Cardiovascular Heart rate: 78 Rhythm: regular Heart Sounds: Present: S1 & S2. Absent: rub, click - Extremities Extremities: no ischemia, pulses intact, pulses symmetrical, No edema Peripheral Pulses: within normal limits - Abdominal General gastrointestinal: Present: soft, non-tender, non-distended, normal bowel sounds Female genitourinary: Present: normal - Integumentary Integumentary: Present: clear, warm, dry - Musculoskeletal Musculoskeletal: gait normal, strength equal bilaterally - Psychiatric Psychiatric: appropriate mood/affect, intact judgment & insight - Neurologic Neurologic: CNII-XII intact, moves all extremities - Allied Health Allied health notes reviewed: nursing, case management HEART Score - HEART Score Troponin: Troponin T 0.019 ng/mL (0.00-0.029) 08/17/21 13:29 Results - Labs CBC & Chem 7: 08/18/21 04:27 08/18/21 04:27 Labs: Laboratory Last Values WBC 4.7 K/mm3 (4.5-11.0) 08/17/21 13:29 RBC 2.08 M/mm3 (3.65-5.03) L 08/17/21 13:29 Hgb 6.7 gm/dl (10.1-14.3) L 08/17/21 13:29 Hct 21.0 % (30.3-42.9) L 08/17/21 13:29 MCV 95 fl (79-97) 08/17/21 13:29 MCH 32 pg (28-32) 08/17/21 13:29 MCHC 34 % (30-34) 08/17/21 13:29 RDW 17.8 % (13.2-15.2) H 08/17/21 13:29 Plt Count 116 K/mm3 (140-440) L 08/17/21 13:29 Lymph % (Auto) 18.6 % (13.4-35.0) 08/17/21 13:29 [place] % (Auto) 5.3 % (0.0-7.3) 08/17/21 13:29 Eos % (Auto) 1.1 % (0.0-4.3) 08/17/21 13:29 Baso % (Auto) 0.6 % (0.0-1.8) 08/17/21 13:29 Lymph # (Auto) 0.9 K/mm3 (1.2-5.4) L 08/17/21 13:29 [place] # (Auto) 0.3 K/mm3 (0.0-0.8) 08/17/21 13:29 Eos # (Auto) 0.1 K/mm3 (0.0-0.4) 08/17/21 13:29 Baso # (Auto) 0.0 K/mm3 (0.0-0.1) 08/17/21 13:29 Seg Neutrophils % 74.4 % (40.0-70.0) H 08/17/21 13:29 Seg Neutrophils # 3.5 K/mm3 (1.8-7.7) 08/17/21 13:29 Sodium 137 mmol/L (137-145) 08/17/21 13:29 Potassium 3.7 mmol/L (3.6-5.0) 08/17/21 13:29 Chloride 104.7 mmol/L (98-107) 08/17/21 13:29 Carbon Dioxide 21 mmol/L (22-30) L 08/17/21 13:29 Anion Gap 15 mmol/L 08/17/21 13:29 BUN 48 mg/dL (7-17) H 08/17/21 13:29 Creatinine 1.9 mg/dL (0.6-1.2) H 08/17/21 13:29 Estimated GFR 31 ml/min 08/17/21 13:29 BUN/Creatinine Ratio 25 % 08/17/21 13:29 Glucose 89 mg/dL (65-100) 08/17/21 13:29 Calcium 10.6 mg/dL (8.4-10.2) H 08/17/21 13:29 Total Bilirubin 0.80 mg/dL (0.1-1.2) 08/17/21 13:29 AST 13 units/L (5-40) 08/17/21 13:29 ALT 12 units/L (7-56) 08/17/21 13:29 Alkaline Phosphatase 36 units/L (35-129) 08/17/21 13:29 Total Creatine Kinase 31 units/L (30-135) 08/17/21 13:29 CK-MB (CK-2) 1.3 ng/mL (0.0-4.0) 08/17/21 13:29 CK-MB (CK-2) Rel Index 4.1 (0-4) H 08/17/21 13:29 Troponin T 0.019 ng/mL (0.00-0.029) 08/17/21 13:29 Total Protein 10.6 g/dL (6.3-8.2) H 08/17/21 13:29 Albumin 2.6 g/dL (3.9-5) L 08/17/21 13:29 Albumin/Globulin Ratio 0.3 % 08/17/21 13:29 TSH 5.670 mlU/mL (0.270-4.200) H 08/17/21 13:29 Free T4 1.16 ng/dL (0.76-1.46) 08/17/21 13:29 Blood Type A POSITIVE 08/17/21 14:47 Crossmatch See Detail 08/17/21 14:47 Short CBC 08/17/21 08/18/21 Range/Units 13:29 04:27 WBC 4.7 4.4 L (4.5-11.0) K/mm3 Hgb 6.7 L 8.2 L (10.1-14.3) gm/dl Hct 21.0 L 25.3 L (30.3-42.9) % Plt Count 116 L 117 L (140-440) K/mm3 BMP 08/17/21 08/18/21 13:29 04:27 Sodium 137 137 Potassium 3.7 4.1 Chloride 104.7 106.7 Carbon Dioxide 21 L 19 L BUN 48 H 50 H Creatinine 1.9 H 1.8 H Glucose 89 136 H Calcium 10.6 H 10.1 Cardiac Enzymes 08/17/21 Range/Units 13:29 Total Creatine Kinase 31 (30-135) units/L CK-MB (CK-2) 1.3 (0.0-4.0) ng/mL Troponin T 0.019 (0.00-0.029) ng/mL Liver Function 08/17/21 08/18/21 Range/Units 13:29 04:27 Total Bilirubin 0.80 1.00 (0.1-1.2) mg/dL AST 13 14 (5-40) units/L ALT 12 8 (7-56) units/L Alkaline Phosphatase 36 38 (35-129) units/L Albumin 2.6 L 2.6 L (3.9-5) g/dL Urine 08/17/21 Range/Units Unknown Urine Color Yellow (Yellow) Urine pH 6.0 (5.0-7.0) Ur Specific [place] 1.017 (1.003-1.030) Urine Protein <15 mg/dl (Negative) mg/dL Urine Glucose (UA) Neg (Negative) mg/dL Microbiology: Microbiology 08/17/21 14:12 Stool Stool Occult Blood (RENAE) - Final Assessment and Plan Advance Directives: Yes (Full code) VTE prophylaxis?: Chemical Plan of care discussed with patient/family: Yes - Patient Problems (1) Symptomatic anemia Current Visit: Yes Status: Acute Plan to address problem: Transfuse 1 to 2 units of packed red blood cells (2) DAPHNIE (acute kidney injury) Current Visit: No Status: Acute Plan to address problem: Vasomotor nephropathy IV fluids for now BUN/creatinine is 48/1.9 (3) Hypertension Current Visit: Yes Status: Chronic Qualifiers: Hypertension type: primary hypertension Qualified Code(s): I10 - Essential (primary) hypertension Plan to address problem: Continue metoprolol and nifedipine and adjust medications as tolerated (4) Hypercalcemia Current Visit: Yes Status: Acute Plan to address problem: Mild IV normal saline for now (5) Malnutrition Current Visit: Yes Status: Chronic Qualifiers: Protein-calorie malnutrition severity: moderate Plan to address problem: Dietary supplements requested (6) Hypergammaglobulinemia Current Visit: Yes Status: Acute Plan to address problem: Total protein is 10.6 and albumin is 2.6 Globulins are 8 UPEP and SPEP requested Patient to be informed by primary team about hypergammaglobulinemia and to be discussed with her oncologist (7) Elevated TSH Current Visit: Yes Status: Chronic Plan to address problem: Possible sick euthyroid syndrome T4 is normal (8) DVT prophylaxis Current Visit: Yes Status: Acute Plan to address problem: On anticoagulation GI prophylaxis (9) Advance care planning Current Visit: Yes Status: Acute Plan to address problem: Disease education conducted, care plan discussed, diagnosis discussed, prognosis discussed. Patient is full code. Patient acknowledges understanding and agreement with care plan. +30 minutes.
[2021-08-17] MEDS ORDERED: ONDANSETRON 4 MG/2 ML INJ IV PRN (15:56)
[2021-08-17] MEDS ORDERED: SODIUM CHLORIDE 0.9% 1000 ML 1,000 ML IV SCH (16:30)
[2021-08-17] MEDS ORDERED: ACETAMINOPHEN 650 MG RECT SUPP PR PRN (16:33)
[2021-08-17] MEDS ORDERED: METOCLOPRAMIDE 10 MG/2 ML INJ IV PRN (16:33)
[2021-08-17 17:06] LABS: Bilirubin,Urine NEG (Negative); Blood,Urine NEG (Negative); Color,Urine Yellow (Yellow); Protein,Urine <15 mg/dL mg/dL (Negative); Urobilinogen,Urine < 2.0 mg/dL (<2.0)
--- NOTE | 2021-08-17 18:04 | Gastroenterology Consultation ---
History of Present Illness - Reason for Consult Consult date: 08/17/21 anemia Requesting physician: BOBBY FRANCIS - History of Present Illness This is a 71 yo female with pmh of chronic anemia, ovarian cancer s/p chemo/radiation presenting with fatigue. Noted to have anemia with hgb at 6.7 from previous 7 range in 06/2021. Patient denies any blood in the stools, abdo brijesh pain, nausea/vomiting, melena. She has been on eliquis for recent DVT. Unclear when she last received chemo and radiation for ovarian cancer. Reports colonoscopy years ago and normal. Medication list reviewed. Past History Past Medical History: other (ovarian cancer) Past Surgical History: Other (pelvic surgery for ovarian cancer) Social history: denies: alcohol abuse Family history: no significant family history Medications and Allergies Allergies Allergy/AdvReac Type Severity Reaction Status Date / Time Penicillins AdvReac Mild Unknown Verified 08/17/21 14:48 Sulfa (Sulfonamide AdvReac Unknown Verified 08/17/21 14:48 Antibiotics) Home Medications Medication Instructions Recorded Confirmed Last Taken Type Cyproheptadine [Periactin] 4 mg PO TID 07/31/20 07/31/20 Unknown History Docusate Sodium [Colace CAP] 100 mg PO TID PRN 07/31/20 07/31/20 Unknown History Escitalopram [Lexapro] 20 mg PO DAILY 07/31/20 07/31/20 Unknown History Iron Fum,Ps/Folic/Bcomp,C No.9 1 each PO QDAY 07/31/20 07/31/20 Unknown History [Folivane-Plus Capsule] Lubiprostone (Nf) [Amitiza (Nf)] 8 mcg PO TID 07/31/20 07/31/20 Unknown History Morphine Sulfate [Morphine Sulfate 60 mg PO BID 07/31/20 07/31/20 Unknown History ER] Pomalidomide [Pomalyst] 1 mg PO QDAY 07/31/20 07/31/20 Unknown History Zolpidem Tartrate 10 mg PO QHS 07/31/20 07/31/20 Unknown History dexAMETHasone [Dexamethasone] 4 mg PO QDAY 07/31/20 07/31/20 Unknown History NIFEdipine XL [Procardia Xl] 90 mg PO Q12HR #60 tablet 08/06/20 Unknown Rx HYDROcodone/APAP 10-325 [[place] 1 each PO Q12HR PRN #15 tab 07/14/21 Unknown Rx 10-325 mg TAB] Metoprolol Tartrate 50 mg PO BID #60 tab 07/14/21 Unknown Rx Pregabalin [Lyrica] 50 mg PO QDAY #60 cap 07/14/21 Unknown Rx Active Meds: Active Medications Acetaminophen (Acetaminophen 650 Mg Rect Supp) 650 mg [place] Q4H PRN PRN Reason: Pain MILD(1-3)/Fever >100.5/REY Hydromorphone HCl (Hydromorphone 1 Mg/1 Ml Inj) 0.5 mg IV Q3H PRN PRN Reason: Pain , Severe (7-10) Sodium Chloride (Nacl 0.9% 1000 Ml) 1,000 mls @ 75 mls/hr IV DIRECT ARRON Stop: 08/18/21 10:00 Metoclopramide HCl (Metoclopramide 10 Mg/2 Ml Inj) 10 mg IV Q6H PRN PRN Reason: Nausea And Vomiting Morphine Sulfate (Morphine 2 Mg/1 Ml Inj) 2 mg IV Q4H PRN PRN Reason: Pain, Moderate (4-6) Ondansetron HCl (Ondansetron 4 Mg/2 Ml Inj) 4 mg IV Q3H PRN PRN Reason: Nausea And Vomiting Sodium Chloride (Sodium Chloride 0.9% 10 Ml Flush Syringe) 10 ml IV BID ARRON Sodium Chloride (Sodium Chloride 0.9% 10 Ml Flush Syringe) 10 ml IV PRN PRN PRN Reason: LINE FLUSH Review of Systems - Review of Systems All systems: negative Constitutional: no weight loss, no fever Eyes: no change in vision Ears, Nose, Throat: no decreased hearing Cardiovascular: no chest pain, no edema Gastrointestinal: no abdominal pain, no nausea, no vomiting, no diarrhea, no constipation, no BRBPR, no melena, no hematochezia Neurological: weakness Psychiatric: no anxiety Endocrine: no cold intolerance Hematologic/Lymphatic: no easy bruising Allergic/Immunologic: no wheezing Exam - Constitutional Vital Signs: Temp Pulse Resp BP Pulse Ox 98.8 F 77 11 L 150/58 100 08/17/21 17:40 08/17/21 17:40 08/17/21 17:40 08/17/21 17:40 08/17/21 17:40 General appearance: no acute distress - EENT Eyes: EOM intact ENT: hearing intact - Neck Neck: supple - Respiratory Respiratory effort: normal - Cardiovascular Rhythm: regular Heart Sounds: Present: S1 & S2 Extremities: No edema - Gastrointestinal General gastrointestinal: Present: soft, non-tender, non-distended, normal bowel sounds - Integumentary Integumentary: Present: clear, warm - Musculoskeletal Musculoskeletal: normal - Neurologic Neurological: alert and oriented x3 - Psychiatric Psychiatric: appropriate mood/affect - Labs CBC & Chem 7: 08/17/21 13:29 08/17/21 13:29 Lab Results: Laboratory Results - last 24 hr 08/17/21 08/17/21 08/17/21 13:29 13:29 13:29 WBC 4.7 RBC 2.08 L Hgb 6.7 L Hct 21.0 L MCV 95 MCH 32 MCHC 34 RDW 17.8 H Plt Count 116 L Lymph % (Auto) 18.6 [place] % (Auto) 5.3 Eos % (Auto) 1.1 Baso % (Auto) 0.6 Lymph # (Auto) 0.9 L [place] # (Auto) 0.3 Eos # (Auto) 0.1 Baso # (Auto) 0.0 Seg Neutrophils % 74.4 H Seg Neutrophils # 3.5 Sodium 137 Potassium 3.7 Chloride 104.7 Carbon Dioxide 21 L Anion Gap 15 BUN 48 H Creatinine 1.9 H Estimated GFR 31 BUN/Creatinine Ratio 25 Glucose 89 POC Glucose Calcium 10.6 H Total Bilirubin 0.80 AST 13 ALT 12 Alkaline Phosphatase 36 Total Creatine Kinase 31 CK-MB (CK-2) 1.3 CK-MB (CK-2) Rel Index 4.1 H Troponin T 0.019 Total Protein 10.6 H Albumin 2.6 L Albumin/Globulin Ratio 0.3 TSH 5.670 H Free T4 1.16 Urine Color Urine Turbidity Urine pH Ur Specific [place] Urine Protein Urine Glucose (UA) Urine Ketones Urine Blood Urine Nitrite Urine Bilirubin Urine Urobilinogen Ur Leukocyte Esterase Urine WBC (Auto) Urine RBC (Auto) U Epithel Cells (Auto) Blood Type Antibody Screen Crossmatch 08/17/21 08/17/21 08/17/21 14:47 15:01 Unknown WBC RBC Hgb Hct MCV MCH MCHC RDW Plt Count Lymph % (Auto) [place] % (Auto) Eos % (Auto) Baso % (Auto) Lymph # (Auto) [place] # (Auto) Eos # (Auto) Baso # (Auto) Seg Neutrophils % Seg Neutrophils # Sodium Potassium Chloride Carbon Dioxide Anion Gap BUN Creatinine Estimated GFR BUN/Creatinine Ratio Glucose POC Glucose 80 Calcium Total Bilirubin AST ALT Alkaline Phosphatase Total Creatine Kinase CK-MB (CK-2) CK-MB (CK-2) Rel Index Troponin T Total Protein Albumin Albumin/Globulin Ratio TSH Free T4 Urine Color Yellow Urine Turbidity Clear Urine pH 6.0 Ur Specific [place] 1.017 Urine Protein <15 mg/dl Urine Glucose (UA) Neg Urine Ketones Neg Urine Blood Neg Urine Nitrite Neg Urine Bilirubin Neg Urine Urobilinogen < 2.0 Ur Leukocyte Esterase Neg Urine WBC (Auto) 2.0 Urine RBC (Auto) 2.0 U Epithel Cells (Auto) 11.0 Blood Type A POSITIVE Antibody Screen Negative Crossmatch See Detail Assessment and Plan # Symptomatic anemia - noted to also have thrombocytopenia - no overt GI bleeding symptoms. - may be also related to chemo. unclear when her last chemo therapy was. - HD stable. Rec - monitor H/H and transfuse with Hgb goal >7. - check iron studies. - may need inpatient EGD/colonoscopy based on clinical course. - will follow. - Patient Problems (1) Symptomatic anemia Current Visit: Yes Status: Acute
[2021-08-18] MEDS: HYDROmorphone 1 MG/1 ML INJ IV PRN ×2 (04:05→18:19)
[2021-08-18 04:51] LABS: Basophils % (Auto) 0.7 % (0.0-1.8); Eosinophils # (Auto) 0.1 K/mm3 (0.0-0.4); Eosinophils % (Auto) 1.5 % (0.0-4.3); Hematocrit 25.3 % (30.3-42.9); Hemoglobin 8.2 gm/dl (10.1-14.3); Lymphocytes # (Auto) 0.8 K/mm3 (1.2-5.4); Lymphocytes % (Auto) 17.8 % (13.4-35.0); Mean Corpuscular HGB Conc 33 % (30-34); Mean Corpuscular Volume 96 fl (79-97); Monocytes # (Auto) 0.3 K/mm3 (0.0-0.8); Monocytes % (Auto) 7.9 % (0.0-7.3); Platelet Count 117 K/mm3 (140-440); Red Blood Count 2.65 M/mm3 (3.65-5.03); Red Cell Distribution Width 17.8 % (13.2-15.2)
[2021-08-18 05:11] LABS: Albumin 2.6 g/dL (3.9-5); Calcium 10.1 mg/dL (8.4-10.2)
[2021-08-18] MEDS ORDERED: ACETAMINOPHEN 325 MG TAB PO PRN (11:12)
--- NOTE | 2021-08-18 11:50 | Gastroenterology Progress Note ---
Assessment and Plan # Symptomatic anemia - noted to also have thrombocytopenia - no overt GI bleeding symptoms. - Hgb responded to blood transfusion. - HD stable. - spoke with family and friend and received more medical information. Patient was recently discharged from [facility] and was diagnosed with a lung mass and also she has advance multiple myeloma. She follows with Dr. Moser, oncology and was planned for home hospice. - anemia likely related to MM and chronic. Rec - Given patient now planned for inpatient hospice and no signs of GI bleeding, would hold off inpatient EGD/colonoscopy. - will sign off. please call as needed. - Patient Problems (1) Symptomatic anemia Current Visit: Yes Status: Acute Subjective Date of service: 08/18/21 Interval history: Patient without any BM. Tolerating diet. No nausea/vomiting. Objective - Constitutional Vitals: Temp Pulse Resp BP Pulse Ox 98.4 F 78 12 155/87 100 08/18/21 06:00 08/18/21 06:00 08/18/21 06:00 08/18/21 06:41 08/18/21 06:41 General appearance: no acute distress - EENT Eyes: EOM intact ENT: hearing decreased - Neck Neck: supple - Respiratory Respiratory effort: normal - Cardiovascular Rhythm: regular Heart Sounds: Present: S1 & S2 - Gastrointestinal General gastrointestinal: Present: soft, non-tender, non-distended - Integumentary Integumentary: Present: clear, warm - Neurologic Neurological: alert and oriented x3 - Psychiatric Psychiatric: appropriate mood/affect - Labs CBC & Chem 7: 08/18/21 04:27 08/18/21 04:27 Labs: Laboratory Results - last 24 hr 08/17/21 08/17/21 08/17/21 13:29 13:29 13:29 WBC 4.7 RBC 2.08 L Hgb 6.7 L Hct 21.0 L MCV 95 MCH 32 MCHC 34 RDW 17.8 H Plt Count 116 L Lymph % (Auto) 18.6 [place] % (Auto) 5.3 Eos % (Auto) 1.1 Baso % (Auto) 0.6 Lymph # (Auto) 0.9 L [place] # (Auto) 0.3 Eos # (Auto) 0.1 Baso # (Auto) 0.0 Seg Neutrophils % 74.4 H Seg Neutrophils # 3.5 Sodium 137 Potassium 3.7 Chloride 104.7 Carbon Dioxide 21 L Anion Gap 15 BUN 48 H Creatinine 1.9 H Estimated GFR 31 BUN/Creatinine Ratio 25 Glucose 89 POC Glucose Calcium 10.6 H Total Bilirubin 0.80 AST 13 ALT 12 Alkaline Phosphatase 36 Total Creatine Kinase 31 CK-MB (CK-2) 1.3 CK-MB (CK-2) Rel Index 4.1 H Troponin T 0.019 Total Protein 10.6 H Albumin 2.6 L Albumin/Globulin Ratio 0.3 TSH 5.670 H Free T4 1.16 Urine Color Urine Turbidity Urine pH Ur Specific [place] Urine Protein Urine Glucose (UA) Urine Ketones Urine Blood Urine Nitrite Urine Bilirubin Urine Urobilinogen Ur Leukocyte Esterase Urine WBC (Auto) Urine RBC (Auto) U Epithel Cells (Auto) Blood Type Antibody Screen Crossmatch 08/17/21 08/17/21 08/17/21 14:47 15:01 Unknown WBC RBC Hgb Hct MCV MCH MCHC RDW Plt Count Lymph % (Auto) [place] % (Auto) Eos % (Auto) Baso % (Auto) Lymph # (Auto) [place] # (Auto) Eos # (Auto) Baso # (Auto) Seg Neutrophils % Seg Neutrophils # Sodium Potassium Chloride Carbon Dioxide Anion Gap BUN Creatinine Estimated GFR BUN/Creatinine Ratio Glucose POC Glucose 80 Calcium Total Bilirubin AST ALT Alkaline Phosphatase Total Creatine Kinase CK-MB (CK-2) CK-MB (CK-2) Rel Index Troponin T Total Protein Albumin Albumin/Globulin Ratio TSH Free T4 Urine Color Yellow Urine Turbidity Clear Urine pH 6.0 Ur Specific [place] 1.017 Urine Protein <15 mg/dl Urine Glucose (UA) Neg Urine Ketones Neg Urine Blood Neg Urine Nitrite Neg Urine Bilirubin Neg Urine Urobilinogen < 2.0 Ur Leukocyte Esterase Neg Urine WBC (Auto) 2.0 Urine RBC (Auto) 2.0 U Epithel Cells (Auto) 11.0 Blood Type A POSITIVE Antibody Screen Negative Crossmatch See Detail 08/18/21 08/18/21 08/18/21 03:45 04:27 04:27 WBC 4.4 L RBC 2.65 L Hgb 8.2 L Hct 25.3 L MCV 96 MCH 31 MCHC 33 RDW 17.8 H Plt Count 117 L Lymph % (Auto) 17.8 [place] % (Auto) 7.9 H Eos % (Auto) 1.5 Baso % (Auto) 0.7 Lymph # (Auto) 0.8 L [place] # (Auto) 0.3 Eos # (Auto) 0.1 Baso # (Auto) 0.0 Seg Neutrophils % 72.1 H Seg Neutrophils # 3.2 Sodium 137 Potassium 4.1 Chloride 106.7 Carbon Dioxide 19 L Anion Gap 15 BUN 50 H Creatinine 1.8 H Estimated GFR 33 BUN/Creatinine Ratio 28 Glucose 136 H POC Glucose 117 H Calcium 10.1 Total Bilirubin 1.00 AST 14 ALT 8 Alkaline Phosphatase 38 Total Creatine Kinase CK-MB (CK-2) CK-MB (CK-2) Rel Index Troponin T Total Protein 10.8 H Albumin 2.6 L Albumin/Globulin Ratio 0.3 TSH Free T4 Urine Color Urine Turbidity Urine pH Ur Specific [place] Urine Protein Urine Glucose (UA) Urine Ketones Urine Blood Urine Nitrite Urine Bilirubin Urine Urobilinogen Ur Leukocyte Esterase Urine WBC (Auto) Urine RBC (Auto) U Epithel Cells (Auto) Blood Type Antibody Screen Crossmatch
--- NOTE | 2021-08-18 12:20 | Discharge Summary ---
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 History of present illness: 71-year-old female with history of ovarian cancer, peripheral neuropathy and chronic anemia comes in for feeling severe fatigue and being lethargic. Patient also noticed foul-smelling urine since last night. No dysuria. No fever or chills. Patient had bilateral DVTs recently and is anticoagulation. Patient not able to remain name of anticoagulant. No fever or chills. ED course: Hemoglobin was 6.7 hence admission, occult blood was positive as per the emergency room physician Hospital course Ms Janna Ortiz was admitted for symptomatic anemia likely due to underlying cancer and ongoing chemotherapy. No occult bleeding. Status post 1 unit prbc. hemoglobin improved to 8.2. Discharge home with instructions to follow up with oncology. Disposition: 01 HOME / SELF CARE / HOMELESS Final Discharge Diagnosis (Prints w/discharge instructions): symptomatic anemia Time spent for discharge: 25 Core Measure Documentation - Palliative Care Palliative Care/ Comfort Measures: Not Applicable - Core Measures Any of the following diagnoses?: none Exam - Physical Exam Narrative exam: General appearance: Present: no distress, well-nourished - EENT Eyes: Present: PERRL ENT: hearing intact, clear oral mucosa - Neck Neck: Present: supple, normal ROM - Respiratory Respiratory effort: normal Respiratory: bilateral: CTA - Cardiovascular Heart rate: 78 Rhythm: regular Heart Sounds: Present: S1 & S2. Absent: rub, click - Extremities Extremities: no ischemia, pulses intact, pulses symmetrical, No edema Peripheral Pulses: within normal limits - Abdominal General gastrointestinal: Present: soft, non-tender, non-distended, normal bowel sounds Female genitourinary: Present: normal - Integumentary Integumentary: Present: clear, warm, dry - Musculoskeletal Musculoskeletal: gait normal, strength equal bilaterally - Psychiatric Psychiatric: appropriate mood/affect, intact judgment & insight - Neurologic Neurologic: CNII-XII intact, moves all extremities - Allied Health Allied health notes reviewed: nursing, case management - Constitutional Vitals: Temp Pulse Resp BP Pulse Ox 98.4 F 78 12 155/87 100 08/18/21 06:00 08/18/21 06:00 08/18/21 06:00 08/18/21 06:41 08/18/21 06:41 Plan Follow up with: PRIMARY CAREMD [Primary Care Provider] - 3-5 Days
--- NOTE | 2021-08-18 13:45 | Event Note ---
Date: 08/18/21 After discussion with patient family and patient oncologist Dr. evans ([phone]), patient would benefit from inpatient hospice. Patient family states that they cannot take care of her so home hospice is not an option for them. Dr. Evans had stated that patient has advanced multiple myeloma (not ovarian cancer as previously documented). There are many treatment options per the patient's oncologist however given patient's frail body habitus and inability to make multiple visits to [place] for treatment, she is a very poor candidate for hospice. Family cannot take care of this patient at home and thus inpatient hospice would likely be the best scenario for this patient. I will hold the discharge at this time and consult our case management team for assistance with inpatient hospice referrals. Discussed with ERIKA Villalba
[2021-08-18] MEDS: MORPHINE 2 MG/1 ML INJ IV PRN (13:49)
[2021-08-18 13:53] LABS: INR 1.03 (0.87-1.13); Iron 59 ug/dL (37-170); Total Iron Binding Capacity 130 mcg/dL (250-450)
[2021-08-19] MEDS: MORPHINE 2 MG/1 ML INJ IV PRN ×4 (00:47→20:55)
--- NOTE | 2021-08-19 10:49 | Progress Note ---
Assessment and Plan Assessment and plan: This is a 71 yo female with pmh of chronic anemia, multiple myeloma presenting with fatigue. Noted to have anemia with hgb at 6.7 from previous 7 range in 06/2021. The patient was admitted with diagnosis of symptomatic anemia patient denied any blood in the stools, abdominal pain, nausea/vomiting, melena. The patient reportedly had been on eliquis for recent DVT. The patient received 1 unit PRBCs with stabilization of hemoglobin. Patient was recently discharged from [facility] and was diagnosed with a lung mass and also she has advance multiple myeloma. She follows with Dr. Moser, oncology and was planned for home hospice. Case management was consulted and patient now plan for inpatient hospi ce. Dedicated discharge time 32 minutes. History Interval history: No new issues overnight. Hospitalist Physical - Constitutional Vitals: Temp Pulse Resp BP Pulse Ox 98.5 F 77 20 141/60 99 08/19/21 05:13 08/19/21 05:13 08/19/21 05:13 08/19/21 05:52 08/19/21 05:13 General appearance: Present: mild distress, well-nourished - EENT Eyes: Present: PERRL, EOM intact ENT: hearing intact, clear oral mucosa, dentition normal - Neck Neck: Present: supple, normal ROM - Respiratory Respiratory effort: normal Respiratory: bilateral: CTA - Cardiovascular Rhythm: regular Heart Sounds: Present: S1 & S2. Absent: gallop, rub - Extremities Extremities: no ischemia, No edema, Full ROM - Abdominal General gastrointestinal: soft, non-tender, non-distended, normal bowel sounds - Integumentary Integumentary: Present: clear, warm, dry - Neurologic Neurologic: CNII-XII intact, moves all extremities HEART Score - HEART Score Troponin: Troponin T 0.019 ng/mL (0.00-0.029) 08/17/21 13:29 Results - Labs CBC & Chem 7: 08/18/21 04:27 08/18/21 04:27 Labs: Laboratory Last Values WBC 4.4 K/mm3 (4.5-11.0) L 08/18/21 04:27 RBC 2.65 M/mm3 (3.65-5.03) L 08/18/21 04:27 Hgb 8.2 gm/dl (10.1-14.3) L 08/18/21 04: Hct 25.3 % (30.3-42.9) L 08/18/21 04: MCV 96 fl (79-97) 08/18/21 04: MCH 31 pg (28-32) 08/18/21 04: MCHC 33 % (30-34) 08/18/21 04: RDW 17.8 % (13.2-15.2) H 08/18/21 04: Plt Count 117 K/mm3 (140-440) L 08/18/21 04: Lymph % (Auto) 17.8 % (13.4-35.0) 08/18/21 04: [place] % (Auto) 7.9 % (0.0-7.3) H 08/18/21 04: Eos % (Auto) 1.5 % (0.0-4.3) 08/18/21 04: Baso % (Auto) 0.7 % (0.0-1.8) 08/18/21 04: Lymph # (Auto) 0.8 K/mm3 (1.2-5.4) L 08/18/21 04: [place] # (Auto) 0.3 K/mm3 (0.0-0.8) 08/18/21 04: Eos # (Auto) 0.1 K/mm3 (0.0-0.4) 08/18/21 04: Baso # (Auto) 0.0 K/mm3 (0.0-0.1) 08/18/21 04: Seg Neutrophils % 72.1 % (40.0-70.0) H 08/18/21 04: Seg Neutrophils # 3.2 K/mm3 (1.8-7.7) 08/18/21 04: PT 14.6 Sec. (12.2-14.9) 08/18/21 12:35 INR 1.03 (0.87-1.13) 08/18/21 12:35 Sodium 137 mmol/L (137-145) 08/18/21 04: Potassium 4.1 mmol/L (3.6-5.0) 08/18/21 04: Chloride 106.7 mmol/L (98-107) 08/18/21 04:27 Carbon Dioxide 19 mmol/L (22-30) L 08/18/21 04:27 Anion Gap 15 mmol/L 08/18/21 04:27 BUN 50 mg/dL (7-17) H 08/18/21 04:27 Creatinine 1.8 mg/dL (0.6-1.2) H 08/18/21 04:27 Estimated GFR 33 ml/min 08/18/21 04:27 BUN/Creatinine Ratio 28 % 08/18/21 04:27 Glucose 136 mg/dL (65-100) H 08/18/21 04:27 POC Glucose 117 mg/dL (70-105) H 08/18/21 03:45 Calcium 10.1 mg/dL (8.4-10.2) 08/18/21 04:27 Iron 59 ug/dL (37-170) 08/18/21 12:35 TIBC 130 mcg/dL (250-450) L 08/18/21 12:35 Ferritin 294.9 ng/mL (10.0-200.0) H 08/18/21 12:35 Total Bilirubin 1.00 mg/dL (0.1-1.2) 08/18/21 04:27 AST 14 units/L (5-40) 08/18/21 04:27 ALT 8 units/L (7-56) 08/18/21 04:27 Alkaline Phosphatase 38 units/L (35-129) 08/18/21 04:27 Total Creatine Kinase 31 units/L (30-135) 08/17/21 13:29 CK-MB (CK-2) 1.3 ng/mL (0.0-4.0) 08/17/21 13:29 CK-MB (CK-2) Rel Index 4.1 (0-4) H 08/17/21 13:29 Troponin T 0.019 ng/mL (0.00-0.029) 08/17/21 13:29 Total Protein 10.8 g/dL (6.3-8.2) H 08/18/21 04:27 Albumin 2.6 g/dL (3.9-5) L 08/18/21 04:27 Albumin/Globulin Ratio 0.3 % 08/18/21 04:27 TSH 5.670 mlU/mL (0.270-4.200) H 08/17/21 13:29 Free T4 1.16 ng/dL (0.76-1.46) 08/17/21 13:29 Urine Color Yellow (Yellow) 08/17/21 Unknown Urine Turbidity Clear (Clear) 08/17/21 Unknown Urine pH 6.0 (5.0-7.0) 08/17/21 Unknown Ur Specific [place] 1.017 (1.003-1.030) 08/17/21 Unknown Urine Protein <15 mg/dl mg/dL (Negative) 08/17/21 Unknown Urine Glucose (UA) Neg mg/dL (Negative) 08/17/21 Unknown Urine Ketones Neg mg/dL (Negative) 08/17/21 Unknown Urine Blood Neg (Negative) 08/17/21 Unknown Urine Nitrite Neg (Negative) 08/17/21 Unknown Urine Bilirubin Neg (Negative) 08/17/21 Unknown Urine Urobilinogen < 2.0 mg/dL (<2.0) 08/17/21 Unknown Ur Leukocyte Esterase Neg (Negative) 08/17/21 Unknown Urine WBC (Auto) 2.0 /HPF (0.0-6.0) 08/17/21 Unknown Urine RBC (Auto) 2.0 /HPF (0.0-6.0) 08/17/21 Unknown U Epithel Cells (Auto) 11.0 /HPF (0-13.0) 08/17/21 Unknown Nasal Screen MRSA (PCR) Negative (Negative) 08/18/21 03:22 Blood Type A POSITIVE 08/17/21 14:47 Antibody Screen Negative 08/17/21 14:47 Crossmatch See Detail 08/17/21 14:47 Morris/IV: Voiding Method Bedside Commode Active Medications - Current Medications Current Medications: Generic Name Dose Route Start Last Admin Trade Name Freq PRN Reason Stop Dose Admin Acetaminophen 650 mg 08/17/21 16:33 Acetaminophen 650 Mg Rect Supp NM Q4H PRN Pain MILD(1-3)/Fever >100.5/REY Acetaminophen 650 mg 08/18/21 11:12 08/18/21 11:25 Acetaminophen 325 Mg Tab PO 650 mg Q4H PRN Administration Pain, Mild (1-3) Hydromorphone HCl 0.5 mg 08/17/21 16:33 08/18/21 18:19 Hydromorphone 1 Mg/1 Ml Inj IV 0.5 mg Q3H PRN Administration Pain , Severe (7-10) Metoclopramide HCl 10 mg 08/17/21 16:33 Metoclopramide 10 Mg/2 Ml Inj IV Q6H PRN Nausea And Vomiting Morphine Sulfate 2 mg 08/17/21 16:33 08/19/21 05:36 Morphine 2 Mg/1 Ml Inj IV 2 mg Q4H PRN Administration Pain, Moderate (4-6) Ondansetron HCl 4 mg 08/17/21 15:56 Ondansetron 4 Mg/2 Ml Inj IV Q3H PRN Nausea And Vomiting Sodium Chloride 10 ml 08/17/21 22:00 08/18/21 22:17 Sodium Chloride 0.9% 10 Ml Flush Syringe IV 10 ml BID ARRON Administration Sodium Chloride 10 ml 08/17/21 15:56 08/18/21 22:16 Sodium Chloride 0.9% 10 Ml Flush Syringe IV 10 ml PRN PRN Administration LINE FLUSH
--- NOTE | 2021-08-19 10:54 | Discharge Summary ---
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 Noted to have anemia with hgb at 6.7 from previous 7 range in 06/2021. The patient was admitted with diagnosis of symptomatic anemia patient denied any blood in the stools, abdominal pain, nausea/vomiting, melena. The patient reportedly had been on eliquis for recent DVT. The patient received 1 unit PRBCs with stabilization of hemoglobin. Patient was recently discharged from [facility] and was diagnosed with a lung mass and also she has advance multiple myeloma. She follows with Dr. Moser, oncology and was planned for home hospice. Case management was consulted and patient now plan for inpatient hospice. However, patient reportedly does not meet criteria for inpatient hospice. We will arrange for home hospice through case management. Dedicated discharge time 32 minutes. Disposition: 01 HOME / SELF CARE / HOMELESS Final Discharge Diagnosis (Prints w/discharge instructions): Symptomatic anemia, multiple myeloma, fatigue/generalized weakness Core Measure Documentation - Palliative Care Palliative Care/ Comfort Measures: Hospice Care - Core Measures Any of the following diagnoses?: none Exam - Constitutional Vitals: Temp Pulse Resp BP Pulse Ox 98.5 F 77 20 141/60 99 08/19/21 05:13 08/19/21 05:13 08/19/21 05:13 08/19/21 05:52 08/19/21 05:13 General appearance: Present: no acute distress, well-nourished - EENT Eyes: Present: PERRL ENT: hearing intact, clear oral mucosa - Neck Neck: Present: supple, normal ROM - Respiratory Respiratory effort: normal Respiratory: bilateral: CTA - Cardiovascular Heart Sounds: Present: S1 & S2. Absent: rub, click - Extremities Extremities: pulses symmetrical, No edema Peripheral Pulses: within normal limits - Abdominal General gastrointestinal: Present: soft, non-tender, non-distended, normal bowel sounds Female genitourinary: Present: normal - Integumentary Integumentary: Present: clear, warm, dry - Musculoskeletal Musculoskeletal: gait normal, strength equal bilaterally - Psychiatric Psychiatric: appropriate mood/affect, intact judgment & insight - Neurologic Neurologic: CNII-XII intact, moves all extremities Plan Activity: advance as tolerated Weight Bearing Status: Weight Bear as Tolerated Diet: regular Follow up with: PRIMARY CARE, [Primary Care Provider] - 3-5 Days
[2021-08-19] MEDS ORDERED: POLYETHYLENE GLYCOL 3350 17 GM POWDER PO PRN (14:27)
[2021-08-19] MEDS: HYDROmorphone 1 MG/1 ML INJ IV PRN (15:02)
[2021-08-20] MEDS: MORPHINE 2 MG/1 ML INJ IV PRN ×5 (01:06→18:06)
[2021-08-20] MEDS ORDERED: hydrALAZINE 20 MG/1 ML INJ IV ONE (04:46)
--- NOTE | 2021-08-20 09:36 | Progress Note ---
Assessment and Plan Assessment and plan: Symptomatic anemia Acute kidney injury Hypertension Hypercalcemia Protein calorie malnutrition Multiple myeloma 08/19/2021. Patient noted to have no overt GI bleeding symptoms. Hemoglobin responded to blood transfusion. Patient was recently discharged from [facility] and was diagnosed with a lung mass and also she has advance multiple myeloma. She follows with Dr. Moser, oncology and was planned for home hospice. Case management to arrange for inpatient hospice. History Interval history: No new issues overnight Hospitalist Physical - Constitutional Vitals: Temp Pulse Resp BP Pulse Ox 98.2 F 86 20 171/58 100 08/20/21 04:19 08/20/21 04:19 08/20/21 04:19 08/20/21 04:57 08/20/21 04:19 General appearance: Present: no acute distress, well-nourished - EENT Eyes: Present: PERRL, EOM intact ENT: hearing intact, clear oral mucosa, dentition normal - Neck Neck: Present: supple, normal ROM - Respiratory Respiratory effort: normal Respiratory: bilateral: CTA - Cardiovascular Rhythm: regular Heart Sounds: Present: S1 & S2. Absent: gallop, rub - Extremities Extremities: no ischemia, No edema, Full ROM - Abdominal General gastrointestinal: soft, non-tender, non-distended, normal bowel sounds - Integumentary Integumentary: Present: clear, warm, dry - Neurologic Neurologic: CNII-XII intact, moves all extremities HEART Score - HEART Score Troponin: Troponin T 0.019 ng/mL (0.00-0.029) 08/17/21 13:29 Results - Labs CBC & Chem 7: 08/18/21 04:27 08/18/21 04:27 Labs: Laboratory Last Values WBC 4.4 K/mm3 (4.5-11.0) L 08/18/21 04:27 RBC 2.65 M/mm3 (3.65-5.03) L 08/18/21 04:27 Hgb 8.2 gm/dl (10.1-14.3) L 08/18/21 04:27 Hct 25.3 % (30.3-42.9) L 08/18/21 04:27 MCV 96 fl (79-97) 08/18/21 04:27 MCH 31 pg (28-32) 08/18/21 04:27 MCHC 33 % (30-34) 08/18/21 04: RDW 17.8 % (13.2-15.2) H 08/18/21 04: Plt Count 117 K/mm3 (140-440) L 08/18/21 04:27 Lymph % (Auto) 17.8 % (13.4-35.0) 08/18/21 04: [place] % (Auto) 7.9 % (0.0-7.3) H 08/18/21 04: Eos % (Auto) 1.5 % (0.0-4.3) 08/18/21 04: Baso % (Auto) 0.7 % (0.0-1.8) 08/18/21 04: Lymph # (Auto) 0.8 K/mm3 (1.2-5.4) L 08/18/21 04: [place] # (Auto) 0.3 K/mm3 (0.0-0.8) 08/18/21 04: Eos # (Auto) 0.1 K/mm3 (0.0-0.4) 08/18/21 04: Baso # (Auto) 0.0 K/mm3 (0.0-0.1) 08/18/21 04: Seg Neutrophils % 72.1 % (40.0-70.0) H 08/18/21 04: Seg Neutrophils # 3.2 K/mm3 (1.8-7.7) 08/18/21 04: PT 14.6 Sec. (12.2-14.9) 08/18/21 12:35 INR 1.03 (0.87-1.13) 08/18/21 12:35 Sodium 137 mmol/L (137-145) 08/18/21 04: Potassium 4.1 mmol/L (3.6-5.0) 08/18/21 04: Chloride 106.7 mmol/L (98-107) 08/18/21 04: Carbon Dioxide 19 mmol/L (22-30) L 08/18/21 04: Anion Gap 15 mmol/L 08/18/21 04:27 BUN 50 mg/dL (7-17) H 08/18/21 04:27 Creatinine 1.8 mg/dL (0.6-1.2) H 08/18/21 04:27 Estimated GFR 33 ml/min 08/18/21 04:27 BUN/Creatinine Ratio 28 % 08/18/21 04:27 Glucose 136 mg/dL (65-100) H 08/18/21 04:27 POC Glucose 117 mg/dL (70-105) H 08/18/21 03:45 Calcium 10.1 mg/dL (8.4-10.2) 08/18/21 04:27 Iron 59 ug/dL (37-170) 08/18/21 12:35 TIBC 130 mcg/dL (250-450) L 08/18/21 12:35 Ferritin 294.9 ng/mL (10.0-200.0) H 08/18/21 12:35 Total Bilirubin 1.00 mg/dL (0.1-1.2) 08/18/21 04: AST 14 units/L (5-40) 08/18/21 04: ALT 8 units/L (7-56) 08/18/21 04:27 Alkaline Phosphatase 38 units/L (35-129) 08/18/21 04:27 Total Creatine Kinase 31 units/L (30-135) 08/17/21 13:29 CK-MB (CK-2) 1.3 ng/mL (0.0-4.0) 08/17/21 13:29 CK-MB (CK-2) Rel Index 4.1 (0-4) H 08/17/21 13:29 Troponin T 0.019 ng/mL (0.00-0.029) 08/17/21 13:29 Total Protein 10.8 g/dL (6.3-8.2) H 08/18/21 04:27 Albumin 2.6 g/dL (3.9-5) L 08/18/21 04:27 Albumin/Globulin Ratio 0.3 % 08/18/21 04:27 TSH 5.670 mlU/mL (0.270-4.200) H 08/17/21 13:29 Free T4 1.16 ng/dL (0.76-1.46) 08/17/21 13:29 Urine Color Yellow (Yellow) 08/17/21 Unknown Urine Turbidity Clear (Clear) 08/17/21 Unknown Urine pH 6.0 (5.0-7.0) 08/17/21 Unknown Ur Specific [place] 1.017 (1.003-1.030) 08/17/21 Unknown Urine Protein <15 mg/dl mg/dL (Negative) 08/17/21 Unknown Urine Glucose (UA) Neg mg/dL (Negative) 08/17/21 Unknown Urine Ketones Neg mg/dL (Negative) 08/17/21 Unknown Urine Blood Neg (Negative) 08/17/21 Unknown Urine Nitrite Neg (Negative) 08/17/21 Unknown Urine Bilirubin Neg (Negative) 08/17/21 Unknown Urine Urobilinogen < 2.0 mg/dL (<2.0) 08/17/21 Unknown Ur Leukocyte Esterase Neg (Negative) 08/17/21 Unknown Urine WBC (Auto) 2.0 /HPF (0.0-6.0) 08/17/21 Unknown Urine RBC (Auto) 2.0 /HPF (0.0-6.0) 08/17/21 Unknown U Epithel Cells (Auto) 11.0 /HPF (0-13.0) 08/17/21 Unknown Nasal Screen MRSA (PCR) Negative (Negative) 08/18/21 03:22 Blood Type A POSITIVE 08/17/21 14:47 Antibody Screen Negative 08/17/21 14:47 Crossmatch See Detail 08/17/21 14:47 Morris/IV: Voiding Method Bedside Commode Active Medications - Current Medications Current Medications: Generic Name Dose Route Start Last Admin Trade Name Freq PRN Reason Stop Dose Admin Acetaminophen 650 mg 08/17/21 16:33 Acetaminophen 650 Mg Rect Supp [place] Q4H PRN Pain MILD(1-3)/Fever >100.5/REY Acetaminophen 650 mg 08/18/21 11:12 08/18/21 11:25 Acetaminophen 325 Mg Tab PO 650 mg Q4H PRN Administration Pain, Mild (1-3) Hydromorphone HCl 0.5 mg 08/17/21 16:33 08/19/21 15:02 Hydromorphone 1 Mg/1 Ml Inj IV 0.5 mg Q3H PRN Administration Pain , Severe (7-10) Metoclopramide HCl 10 mg 08/17/21 16:33 Metoclopramide 10 Mg/2 Ml Inj IV Q6H PRN Nausea And Vomiting Morphine Sulfate 2 mg 08/17/21 16:33 08/20/21 08:32 Morphine 2 Mg/1 Ml Inj IV 2 mg Q4H PRN Administration Pain, Moderate (4-6) Ondansetron HCl 4 mg 08/17/21 15:56 Ondansetron 4 Mg/2 Ml Inj IV Q3H PRN Nausea And Vomiting Polyethylene Glycol 17 gm 08/19/21 14:27 08/19/21 14:48 Polyethylene Glycol 3350 17 Gm Powder PO 17 gm QDAY PRN Administration Constipation Sodium Chloride 10 ml 08/17/21 22:00 08/19/21 21:07 Sodium Chloride 0.9% 10 Ml Flush Syringe IV 10 ml BID ARRON Administration Sodium Chloride 10 ml 08/17/21 15:56 08/18/21 22:16 Sodium Chloride 0.9% 10 Ml Flush Syringe IV 10 ml PRN PRN Administration LINE FLUSH
[2021-08-20 19:01] VITALS: BP 158/57
[2021-08-20] MEDS: HYDROmorphone 1 MG/1 ML INJ IV PRN (21:53)
[2021-08-21] MEDS: MORPHINE 2 MG/1 ML INJ IV PRN ×2 (02:16→10:41)
[2021-08-21] MEDS ORDERED: METOCLOPRAMIDE 10 MG/2 ML INJ IV PRN (11:00)
--- NOTE | 2021-08-21 11:11 | Progress Note ---
Assessment and Plan Assessment and plan: Symptomatic anemia Acute kidney injury Hypertension Hypercalcemia Protein calorie malnutrition Multiple myeloma 08/19/2021. Patient noted to have no overt GI bleeding symptoms. Hemoglobin responded to blood transfusion. Patient was recently discharged from [facility] and was diagnosed with a lung mass and also she has advance multiple myeloma. She follows with Dr. Moser, oncology and was planned for home hospice. Case management to arrange for inpatient hospice. 08/20/2021. manufacturing planner received call from Aimee of [facility] and informed pt Brother Navjot Garcia on board with home hospice. Aimee informed scientific writer the equipment (hospital bed, over bed table, wheelchair and oxygen) will be delivered at 5 p.m. today. Transportation arranged via [employer] for 10 a.m. 08/21/2021. History Interval history: No new issues overnight Hospitalist Physical - Constitutional Vitals: Temp Pulse Resp BP Pulse Ox 97.7 F 89 17 158/57 98 08/20/21 17:04 08/20/21 17:04 08/20/21 17:04 08/20/21 17:04 08/21/21 07:52 General appearance: Present: no acute distress, well-nourished - EENT Eyes: Present: PERRL, EOM intact ENT: hearing intact, clear oral mucosa, dentition normal - Neck Neck: Present: supple, normal ROM - Respiratory Respiratory effort: normal Respiratory: bilateral: CTA - Cardiovascular Rhythm: regular Heart Sounds: Present: S1 & S2. Absent: gallop, rub - Extremities Extremities: no ischemia, No edema, Full ROM - Abdominal General gastrointestinal: soft, non-tender, non-distended, normal bowel sounds - Integumentary Integumentary: Present: clear, warm, dry - Neurologic Neurologic: CNII-XII intact, moves all extremities HEART Score - HEART Score Troponin: Troponin T 0.019 ng/mL (0.00-0.029) 08/17/21 13:29 Results - Labs CBC & Chem 7: 08/18/21 04:27 08/18/21 04:27 Labs: Laboratory Last Values WBC 4.4 K/mm3 (4.5-11.0) L 08/18/21 04:27 RBC 2.65 M/mm3 (3.65-5.03) L 08/18/21 04: Hgb 8.2 gm/dl (10.1-14.3) L 08/18/21 04: Hct 25.3 % (30.3-42.9) L 08/18/21 04: MCV 96 fl (79-97) 08/18/21 04: MCH 31 pg (28-32) 08/18/21 04: MCHC 33 % (30-34) 08/18/21 04: RDW 17.8 % (13.2-15.2) H 08/18/21 04: Plt Count 117 K/mm3 (140-440) L 08/18/21 04: Lymph % (Auto) 17.8 % (13.4-35.0) 08/18/21 04: [place] % (Auto) 7.9 % (0.0-7.3) H 08/18/21 04: Eos % (Auto) 1.5 % (0.0-4.3) 08/18/21 04: Baso % (Auto) 0.7 % (0.0-1.8) 08/18/21 04: Lymph # (Auto) 0.8 K/mm3 (1.2-5.4) L 08/18/21 04: [place] # (Auto) 0.3 K/mm3 (0.0-0.8) 08/18/21 04: Eos # (Auto) 0.1 K/mm3 (0.0-0.4) 08/18/21 04: Baso # (Auto) 0.0 K/mm3 (0.0-0.1) 08/18/21 04: Seg Neutrophils % 72.1 % (40.0-70.0) H 08/18/21 04: Seg Neutrophils # 3.2 K/mm3 (1.8-7.7) 08/18/21 04: PT 14.6 Sec. (12.2-14.9) 08/18/21 12:35 INR 1.03 (0.87-1.13) 08/18/21 12:35 Sodium 137 mmol/L (137-145) 08/18/21 04: Potassium 4.1 mmol/L (3.6-5.0) 08/18/21 04:27 Chloride 106.7 mmol/L (98-107) 08/18/21 04:27 Carbon Dioxide 19 mmol/L (22-30) L 08/18/21 04:27 Anion Gap 15 mmol/L 08/18/21 04:27 BUN 50 mg/dL (7-17) H 08/18/21 04:27 Creatinine 1.8 mg/dL (0.6-1.2) H 08/18/21 04:27 Estimated GFR 33 ml/min 08/18/21 04:27 BUN/Creatinine Ratio 28 % 08/18/21 04:27 Glucose 136 mg/dL (65-100) H 08/18/21 04:27 POC Glucose 117 mg/dL (70-105) H 08/18/21 03:45 Calcium 10.1 mg/dL (8.4-10.2) 08/18/21 04:27 Iron 59 ug/dL (37-170) 08/18/21 12:35 TIBC 130 mcg/dL (250-450) L 08/18/21 12:35 Ferritin 294.9 ng/mL (10.0-200.0) H 08/18/21 12:35 Total Bilirubin 1.00 mg/dL (0.1-1.2) 08/18/21 04:27 AST 14 units/L (5-40) 08/18/21 04:27 ALT 8 units/L (7-56) 08/18/21 04:27 Alkaline Phosphatase 38 units/L (35-129) 08/18/21 04:27 Total Creatine Kinase 31 units/L (30-135) 08/17/21 13:29 CK-MB (CK-2) 1.3 ng/mL (0.0-4.0) 08/17/21 13:29 CK-MB (CK-2) Rel Index 4.1 (0-4) H 08/17/21 13:29 Troponin T 0.019 ng/mL (0.00-0.029) 08/17/21 13:29 Total Protein 10.8 g/dL (6.3-8.2) H 08/18/21 04:27 Albumin 2.6 g/dL (3.9-5) L 08/18/21 04:27 Albumin/Globulin Ratio 0.3 % 08/18/21 04:27 TSH 5.670 mlU/mL (0.270-4.200) H 08/17/21 13:29 Free T4 1.16 ng/dL (0.76-1.46) 08/17/21 13:29 Urine Color Yellow (Yellow) 08/17/21 Unknown Urine Turbidity Clear (Clear) 08/17/21 Unknown Urine pH 6.0 (5.0-7.0) 08/17/21 Unknown Ur Specific [place] 1.017 (1.003-1.030) 08/17/21 Unknown Urine Protein <15 mg/dl mg/dL (Negative) 08/17/21 Unknown Urine Glucose (UA) Neg mg/dL (Negative) 08/17/21 Unknown Urine Ketones Neg mg/dL (Negative) 08/17/21 Unknown Urine Blood Neg (Negative) 08/17/21 Unknown Urine Nitrite Neg (Negative) 08/17/21 Unknown Urine Bilirubin Neg (Negative) 08/17/21 Unknown Urine Urobilinogen < 2.0 mg/dL (<2.0) 08/17/21 Unknown Ur Leukocyte Esterase Neg (Negative) 08/17/21 Unknown Urine WBC (Auto) 2.0 /HPF (0.0-6.0) 08/17/21 Unknown Urine RBC (Auto) 2.0 /HPF (0.0-6.0) 08/17/21 Unknown U Epithel Cells (Auto) 11.0 /HPF (0-13.0) 08/17/21 Unknown Nasal Screen MRSA (PCR) Negative (Negative) 08/18/21 03:22 Blood Type A POSITIVE 08/17/21 14:47 Antibody Screen Negative 08/17/21 14:47 Crossmatch See Detail 08/17/21 14:47 Morris/IV: Voiding Method Bedside Commode Active Medications - Current Medications Current Medications: Generic Name Dose Route Start Last Admin Trade Name Freq PRN Reason Stop Dose Admin Acetaminophen 650 mg 08/17/21 16:33 Acetaminophen 650 Mg Rect Supp AL Q4H PRN Pain MILD(1-3)/Fever >100.5/REY Acetaminophen 650 mg 08/18/21 11:12 08/18/21 11:25 Acetaminophen 325 Mg Tab PO 650 mg Q4H PRN Administration Pain, Mild (1-3) Hydromorphone HCl 0.5 mg 08/17/21 16:33 08/20/21 21:53 Hydromorphone 1 Mg/1 Ml Inj IV 0.5 mg Q3H PRN Administration Pain , Severe (7-10) Metoclopramide HCl 5 mg 08/21/21 11:00 Metoclopramide 10 Mg/2 Ml Inj IV Q6H PRN Nausea And Vomiting Morphine Sulfate 2 mg 08/17/21 16:33 08/21/21 10:41 Morphine 2 Mg/1 Ml Inj IV 2 mg Q4H PRN Administration Pain, Moderate (4-6) Ondansetron HCl 4 mg 08/17/21 15:56 08/20/21 21:49 Ondansetron 4 Mg/2 Ml Inj IV 4 mg Q3H PRN Administration Nausea And Vomiting Polyethylene Glycol 17 gm 08/19/21 14:27 08/19/21 14:48 Polyethylene Glycol 3350 17 Gm Powder PO 17 gm QDAY PRN Administration Constipation Sodium Chloride 10 ml 08/17/21 22:00 08/21/21 02:22 Sodium Chloride 0.9% 10 Ml Flush Syringe IV 10 ml BID ARRON Administration Sodium Chloride 10 ml 08/17/21 15:56 08/18/21 22:16 Sodium Chloride 0.9% 10 Ml Flush Syringe IV 10 ml PRN PRN Administration LINE FLUSH
== END 2021-08-21 11:20 | disposition home or self-care (01) ==
LOC: ED 11:32 → INTOOBSV 15:56 → 3A 15:56
PROVIDERS: ADMIT Internal Medicine; ATTEND Hospitalist
DX: K92.2 Gastrointestinal hemorrhage, unspecified (principal); D64.9 Anemia, unspecified; N17.9 Acute kidney failure, unspecified; I10 Essential (primary) hypertension; E83.52 Hypercalcemia; E46 Unspecified protein-calorie malnutrition; D89.2 Hypergammaglobulinemia, unspecified; R79.89 Other specified abnormal findings of blood chemistry; E87.6 Hypokalemia; K58.9 Irritable bowel syndrome, unspecified; C90.00 Multiple myeloma not having achieved remission; C56.9 Malignant neoplasm of unspecified ovary; Z68.22 Body mass index [BMI] 22.0-22.9, adult; Z90.721 Acquired absence of ovaries, unilateral
CPT/HCPCS: 36415; 36430; 80053; 81001; 82271; 82550; 82553; 82728; 82962; 83550; 84439; 84443; 84484; 85025; 85610; 86850; 86900; 86901; 86920; 87641; 96361; 96374; 96375; 96376; 99284; C9113; G0378; J0360; J1170; J2270; J2405; J7030; J7040; P9016